=== PATIENT | female | born 1930 | race Caucasian/White ===

== ENCOUNTER 2017-01-19 13:41 | Inpatient (IN) ==
--- NOTE | 2017-01-19 14:19 | Internal Med History&Physical ---
Date of Encounter: 01/19/17 Time of Encounter: 14:17 Assessment and Plan (1) Pressure injury of skin, stage 2 Current visit: No Status: Acute Ration is cellulitis of the feet and anterior lower tibial area bilaterally Qualifiers: Pressure ulcer location: foot, unspecified location Laterality: unspecified laterality Qualified Code(s): L89.892 - Pressure ulcer of other site, stage 2 (2) Venous stasis dermatitis Current visit: No Status: Acute On exam his stasis in most this lymphedema Qualifiers: Laterality: bilateral Qualified Code(s): I87.2 - Venous insufficiency ( chronic) (peripheral) Internal Medicine - H&P: HPI Chief complaint: Dr. Jose came to me regarding this patient is treating wound care. She had Admitted From: Direct Admit Plans for Post Hospital Care: Home History of present illness: Ms. Trevino is a 86 year old female who agreed to come into the hospital for acute admission for IV antibiotics and just elevation treatment and wrapping of her lower extremity cellulitis Past Med Surg Social Fam HX - Past Medical History Medical history: arthritis, diabetes, GERD, hyperlipidemia, hypertension, venous stasis (Chronic lymphedema with cellulitis) Psychiatric history: no psych history - Past Surgical History Surgical History: cholecystectomy - Social History Smoking Status: Never smoker Smokeless Tobacco Status: No Alcohol use: none Drug use: none Internal Medicine - H&P: Meds Atorvastatin [Lipitor] 40 mg PO HS 01/07/15 [History] Diclofenac Sodium [Voltaren] 100 gm TP TID 01/07/15 [History] Furosemide [Lasix] 80 mg PO BID 01/07/15 [History] Glimepiride [Amaryl] 2 mg PO DAILY 01/07/15 [History] Mirabegron [Myrbetriq] 25 mg PO DAILY 01/07/15 [History] Omeprazole [Prilosec] 40 mg PO DAILY 01/07/15 [History] Valsartan [Diovan] 160 mg PO DAILY 01/07/15 [History] levoFLOXacin [Levaquin] 500 mg PO DAILY #14 tablet 02/04/16 [Rx] Clindamycin [Cleocin] 450 mg PO TID #63 capsule 01/05/17 [Rx] 3 Allergy/AdvReac Type Severity Reaction Status Date / Time cephalexin [From Keflex] Allergy Itching Verified 01/07/15 14:06 sulfamethoxazole Allergy Itching Verified 01/07/15 14:05 [From Bactrim] All Systems PM: A 10-system review of systems was performed and is negative for pertinent findings except as documented above in the HPI. - Head Head exam: Present: atraumatic, normocephalic - Neck Neck exam general surgery: Present: supple, trachea midline. Absent: lymphadenopathy - Respiratory Respiratory exam: Present: CTAB. Absent: accessory muscle use, rales, rhonchi, wheezes - Cardiovascular Cardiovascular exam: Present: RRR, +S1, +S2. Absent: diastolic murmur, gallop, rubs, systolic murmur - GI/Abdominal GI/Abdominal exam: Present: normal bowel sounds, soft, no peritoneal signs. Absent: distended, tenderness - Expanded Lower Extremities Exam Lower Leg exam: Present: erythema, swelling (Severe lymphedema cellulitis with generalized erythema) Internal Med - H&P Results - Labs Labs: Pending
[2017-01-19] MEDS: Clindamycin 600 MG/50 ML 600 MG/50 ML IV.SOLN IVPB SCH ×2 (16:34→23:25)
[2017-01-19] MEDS: *HR* Enoxaparin 100 MG/ML SYRINGE SQ SCH (16:34)
[2017-01-19] MEDS: traMADol 50 MG TABLET PO PRN ×2 (16:42→23:25)
[2017-01-19] MEDS: Furosemide 20 MG TABLET PO SCH (16:42)
[2017-01-19] MEDS ORDERED: Furosemide 40 MG TABLET PO SCH ×2 (17:00→21:00)
[2017-01-19] MEDS: Nystatin POWDER 30 GM BOTTLE TP SCH (23:25)
[2017-01-20] MEDS: *HR* Enoxaparin 100 MG/ML SYRINGE SQ SCH (05:36)
[2017-01-20 06:30] LABS: Basophils % 0.2 %; Eosinophils # 0.5 K/mcL (0.0-0.6); Eosinophils % 3.5 %; Hematocrit 36.9 % (35.3-44.9); Hemoglobin 12.3 g/dL (11.5-15.4); Immature Granulocytes % 0.4 % (0-4); Lymphocytes # 1.6 K/mcL (0.6-4.6); Lymphocytes % 11.4 %; Mean Corpuscular HGB Conc 33.3 g/dL (31.6-35.5); Mean Corpuscular Hemoglobin 29.3 pg (28.0-33.3); Mean Corpuscular Volume 87.9 fL (83.0-100.0); Mean Platelet Volume 11.2 fL (9.4-12.4); Monocytes # 1.5 K/mcL (0.0-1.3); Monocytes % 10.1 %; Neutrophils # 10.7 K/mcL (1.6-8.9); Platelet Count 328 K/mcL (140-400); Segmented Neutrophils % 74.4 %
[2017-01-20 06:33] LABS: INR 1.2; Prothrombin Time 12.6 Seconds (9.4-12.1)
[2017-01-20 06:42] LABS: Calcium 9.2 mg/dL (8.6-10.8); Potassium 4.4 mEq/L (3.5-4.5)
[2017-01-20] MEDS: Clindamycin 600 MG/50 ML 600 MG/50 ML IV.SOLN IVPB SCH ×2 (08:11→15:28)
[2017-01-20] MEDS: Nystatin POWDER 30 GM BOTTLE TP SCH ×2 (08:12→22:13)
[2017-01-20] MEDS: *HR* Glimepiride 2 MG TABLET PO SCH (08:12)
[2017-01-20] MEDS: Furosemide 20 MG TABLET PO SCH (08:12)
--- NOTE | 2017-01-20 16:40 | Internal Med Progress Note ---
Date of Encounter: 01/20/17 Time of Encounter: 16:20 - Assessment and plan (1) Cellulitis Current Visit: Yes Status: Acute Assessment and plan: - Continue clindamycin. - Wound care consult placed. Qualifiers: Site of cellulitis: extremity Site of cellulitis of extremity: lower extremity Laterality: unspecified laterality Qualified Code(s): L03.119 - Cellulitis of unspecified part of limb (2) Leukocytosis Current Visit: Yes Status: Acute Assessment and plan: - Likely 2/2 cellulitis; management per celullitis. - CBC/d tomorrow morning. Qualifiers: Qualified Code(s): D72.828 - Other elevated white blood cell count (3) Elevated serum creatinine Current Visit: Yes Status: Acute Assessment and plan: - Hold furosemide. - Initiate MIVF. - BMP tomorrow morning. - Time Spent With Patient 25 - 35 minutes - Subjective Interval history: Feels pain under legs where sheets are placed and would like to have something softer under the legs. Otherwise feels okay. - Constitutional Vitals: Temp Pulse Resp BP Pulse Ox 98.1 F 71 18 116/82 94 01/20/17 16:00 01/20/17 16:00 01/20/17 16:00 01/20/17 16:00 01/20/17 16:00 Exam: Gen: A&Ox3, NAD. HEENT: NCAT. Neck: No palpable lymphadenopathy or thyromegaly. CV: RRR, S1S2. No murmur. Capillary refill < 2 seconds. Pulm: CTAB. Abd: (+)BS. NDNT. Neuro: Non-focal. Skin: No rash observed. Ext: Bilateral LE wrapped with yasmani wraps. Internal Medicine: Result - Labs CBC & Chem 7: 01/20/17 06:23 01/20/17 06:23 Labs: Short CBC 01/20/17 Range/Units 06:23 WBC 14.4 H (4.3-11.1) K/mcL Hgb 12.3 (11.5-15.4) g/dL Hct 36.9 (35.3-44.9) % Plt Count 328 (140-400) K/mcL Neutrophils # 10.7 H (1.6-8.9) K/mcL BMP 01/20/17 06:23 Sodium 137 Potassium 4.4 Chloride 106 Carbon Dioxide 21 BUN 49 H Creatinine 1.55 H Glucose 114 H Calcium 9.2 - ABG Interpretation ABG results: PT/INR, D-dimer PT 12.6 Seconds (9.4-12.1) H 01/20/17 06:23 - VTE Reasons for not Prescribing Prophylaxis: Treatment not Indicated - Low risk for VTE Consult Discharge Plan - Plan Referrals: NONE,PCP [Primary Care Provider] -
[2017-01-20] MEDS: traMADol 50 MG TABLET PO PRN ×2 (16:58→22:38)
[2017-01-20] MEDS: 0.9 % Sodium Chloride 1,000 ML IVC SCH (17:19)
[2017-01-21] MEDS: Clindamycin 600 MG/50 ML 600 MG/50 ML IV.SOLN IVPB SCH ×3 (00:16→16:16)
[2017-01-21] MEDS: 0.9 % Sodium Chloride 1,000 ML IVC SCH ×2 (01:37→10:04)
[2017-01-21 05:22] LABS: Basophils % 0.2 %; Eosinophils # 0.5 K/mcL (0.0-0.6); Eosinophils % 4.7 %; Hematocrit 35.3 % (35.3-44.9); Hemoglobin 11.6 g/dL (11.5-15.4); Immature Granulocytes % 0.4 % (0-4); Lymphocytes # 1.6 K/mcL (0.6-4.6); Lymphocytes % 13.7 %; Mean Corpuscular HGB Conc 32.9 g/dL (31.6-35.5); Mean Corpuscular Volume 88.3 fL (83.0-100.0); Monocytes # 1.2 K/mcL (0.0-1.3); Monocytes % 10.4 %; Neutrophils # 8.1 K/mcL (1.6-8.9); Platelet Count 291 K/mcL (140-400); Segmented Neutrophils % 70.6 %
[2017-01-21 05:32] LABS: Calcium 8.2 mg/dL (8.6-10.8); Potassium 3.7 mEq/L (3.5-4.5)
[2017-01-21] MEDS: *HR* Enoxaparin 100 MG/ML SYRINGE SQ SCH (05:45)
[2017-01-21] MEDS: traMADol 50 MG TABLET PO PRN ×2 (06:59→20:26)
[2017-01-21] MEDS: *HR* Glimepiride 2 MG TABLET PO SCH (10:02)
[2017-01-21] MEDS: Nystatin POWDER 30 GM BOTTLE TP SCH ×2 (10:03→20:33)
--- NOTE | 2017-01-21 11:05 | Internal Med Progress Note ---
Date of Encounter: 01/21/17 Time of Encounter: 10:45 - Assessment and plan (1) Cellulitis Current Visit: Yes Status: Acute Assessment and plan: - Improving per the patient's report. - Continue clindamycin. - Wound care consult placed. Qualifiers: Site of cellulitis: extremity Site of cellulitis of extremity: lower extremity Laterality: unspecified laterality Qualified Code(s): L03.119 - Cellulitis of unspecified part of limb (2) Leukocytosis Current Visit: Yes Status: Acute Assessment and plan: - Improving, likely 2/2 cellulitis, which is responding to management. - Clinical monitoring and CBC/d as clinically indicated. Qualifiers: Qualified Code(s): D72.828 - Other elevated white blood cell count (3) Elevated serum creatinine Current Visit: Yes Status: Acute Assessment and plan: - Improving with hydration. - Will discontinue MIVF today. - Encourage PO intake. - Continue to hold furosemide for now; consider resuming when medically stable. - BMP tomorrow morning. - Time Spent With Patient 25 - 35 minutes - Subjective Interval history: - Pain under legs is better than yesterday, but still some soreness. - Feels UE is a bit more swollen at the IV sites. - With dressings over bilateral LE removed, patient believes her bilateral LE skin looks a whole lot better. - Constitutional Vitals: Temp Pulse Resp BP Pulse Ox 98.3 F 80 18 136/65 93 01/21/17 07:33 01/21/17 07:33 01/21/17 07:33 01/21/17 07:33 01/21/17 07:33 Exam: Gen: A&Ox3, NAD. HEENT: NCAT. Neck: No palpable lymphadenopathy or thyromegaly. CV: RRR, S1S2. No murmur. Capillary refill < 2 seconds. Pulm: CTAB. Abd: (+)BS. NDNT. Neuro: Non-focal. Skin: No rash observed. Ext: Erythema and pressure ulcers in bilateral LE observed upon dressing removal. Trace pitting edema in bilateral LE. Internal Medicine: Result - Labs CBC & Chem 7: 01/21/17 05:00 01/21/17 05:00 Labs: Short CBC 01/21/17 Range/Units 05:00 WBC 11.5 H (4.3-11.1) K/mcL Hgb 11.6 (11.5-15.4) g/dL Hct 35.3 (35.3-44.9) % Plt Count 291 (140-400) K/mcL Neutrophils # 8.1 (1.6-8.9) K/mcL BMP 01/21/17 05:00 Sodium 141 Potassium 3.7 Chloride 109 Carbon Dioxide 20 BUN 41 H Creatinine 1.21 H Glucose 87 Calcium 8.2 L - ABG Interpretation ABG results: PT/INR, D-dimer PT 12.6 Seconds (9.4-12.1) H 01/20/17 06:23 - VTE Reasons for not Prescribing Prophylaxis: Treatment not Indicated - Low risk for VTE Consult Discharge Plan - Plan Referrals: NONE,PCP [Primary Care Provider] -
[2017-01-22] MEDS: Clindamycin 600 MG/50 ML 600 MG/50 ML IV.SOLN IVPB SCH ×4 (00:57→16:48)
[2017-01-22] MEDS: *HR* Enoxaparin 100 MG/ML SYRINGE SQ SCH (05:06)
[2017-01-22 06:16] LABS: BUN/Creatinine Ratio 26 (6-26); Blood Urea Nitrogen 23 mg/dL (7-20); Calcium 8.4 mg/dL (8.6-10.8); Carbon Dioxide 21 mEq/L (19-29); Chloride 108 mEq/L (98-109); Glucose 136 mg/dL (70-99); Osmolality,Calculated 292 (280-300); Potassium 3.7 mEq/L (3.5-4.5); Sodium 138 mEq/L (136-145); eGFR For African Americans > 60 (> 60); eGFR For Non-African Americans > 60 (> 60)
[2017-01-22] MEDS: traMADol 50 MG TABLET PO PRN (08:48)
[2017-01-22] MEDS: *HR* Glimepiride 2 MG TABLET PO SCH (08:48)
[2017-01-22] MEDS: Nystatin POWDER 30 GM BOTTLE TP SCH ×2 (08:49→18:29)
--- NOTE | 2017-01-22 15:03 | Internal Med Progress Note ---
Date of Encounter: 01/22/17 Time of Encounter: 15:01 - Assessment and plan (1) Pressure injury of skin, stage 2 Current Visit: No Status: Acute Assessment and plan: Patient is still wearing her Unna boots and will definitely see the legs were we changed him tomorrow wound care will see her then Qualifiers: Pressure ulcer location: foot, unspecified location Laterality: unspecified laterality Qualified Code(s): L89.892 - Pressure ulcer of other site, stage 2 (2) Venous stasis dermatitis Current Visit: No Status: Acute Assessment and plan: Chronic in nature Qualifiers: Laterality: bilateral Qualified Code(s): I87.2 - Venous insufficiency ( chronic) (peripheral) - Time Spent With Patient less than 15 minutes - Subjective Interval history: Shabnam has no complaints and states then want to go home she doing okay she states she does not have much appetite. - Constitutional Vitals: Temp Pulse Resp BP Pulse Ox 98.7 F 78 18 111/52 91 01/22/17 11:21 01/22/17 11:21 01/22/17 11:21 01/22/17 11:21 01/22/17 11:21 - Head Head exam: Present: atraumatic, normal inspection, normocephalic - Neck Neck exam general surgery: Present: supple, trachea midline. Absent: lymphadenopathy - Respiratory Respiratory exam: Present: CTAB. Absent: accessory muscle use, rales, rhonchi, wheezes - Cardiovascular Cardiovascular exam: Present: RRR, +S1, +S2. Absent: diastolic murmur, gallop, rubs, systolic murmur - GI/Abdominal GI/Abdominal exam: Present: normal bowel sounds, soft, no peritoneal signs. Absent: distended, tenderness Internal Medicine: Result - Labs CBC & Chem 7: 01/21/17 05:00 01/22/17 04:50 Labs: BMP 01/22/17 04:50 Sodium 138 Potassium 3.7 Chloride 108 Carbon Dioxide 21 BUN 23 H D Creatinine 0.89 Glucose 136 H Calcium 8.4 L Patient's renal function improved. In addition her output exceeded her intake. - ABG Interpretation ABG results: PT/INR, D-dimer PT 12.6 Seconds (9.4-12.1) H 01/20/17 06:23 - VTE Reasons for not Prescribing Prophylaxis: Treatment not Indicated - Low risk for VTE Consult Discharge Plan - Plan Referrals: NONE,PCP [Primary Care Provider] -
[2017-01-23] MEDS: Clindamycin 600 MG/50 ML 600 MG/50 ML IV.SOLN IVPB SCH ×4 (00:37→23:50)
[2017-01-23] MEDS: *HR* Enoxaparin 100 MG/ML SYRINGE SQ SCH (05:09)
[2017-01-23] MEDS: traMADol 50 MG TABLET PO PRN ×2 (05:21→16:21)
[2017-01-23] MEDS: Furosemide 20 MG TABLET PO SCH ×2 (09:53→16:21)
[2017-01-23] MEDS: *HR* Glimepiride 2 MG TABLET PO SCH (09:53)
[2017-01-23] MEDS: Nystatin POWDER 30 GM BOTTLE TP SCH ×2 (09:54→20:55)
--- NOTE | 2017-01-23 13:08 | Internal Med Progress Note ---
Date of Encounter: 01/23/17 Time of Encounter: 13:06 - Assessment and plan (1) Pressure injury of skin, stage 2 Current Visit: No Status: Acute Assessment and plan: Much improved Qualifiers: Pressure ulcer location: foot, unspecified location Laterality: unspecified laterality Qualified Code(s): L89.892 - Pressure ulcer of other site, stage 2 (2) Venous stasis dermatitis Current Visit: No Status: Acute Assessment and plan: Swelling is down wrinkles are present anterior tibial area feeder much less puffy Qualifiers: Laterality: bilateral Qualified Code(s): I87.2 - Venous insufficiency ( chronic) (peripheral) - Time Spent With Patient less than 15 minutes - Subjective Interval history: Shabnam has no complaints and states then want to go home she doing okay she states she does not have much appetite. Wound care changes dressings I was in there. She has much less erythema and now individual toes could be seen and will be wrapped individually. There reapplying the dressing now. She does have some open areas between the toes and there so disfigured it is difficult to tell what snail - Constitutional Vitals: Temp Pulse Resp BP Pulse Ox 97 F L 77 20 94/52 91 01/23/17 11:02 01/23/17 11:02 01/23/17 11:02 01/23/17 11:02 01/23/17 11:02 - Head Head exam: Present: atraumatic, normal inspection, normocephalic - Neck Neck exam general surgery: Present: supple, trachea midline. Absent: lymphadenopathy - Respiratory Respiratory exam: Present: CTAB. Absent: accessory muscle use, rales, rhonchi, wheezes - Cardiovascular Cardiovascular exam: Present: RRR, +S1, +S2. Absent: diastolic murmur, gallop, rubs, systolic murmur Internal Medicine: Result - Labs CBC & Chem 7: 01/21/17 05:00 01/22/17 04:50 Labs: Lab looks good - ABG Interpretation ABG results: PT/INR, D-dimer PT 12.6 Seconds (9.4-12.1) H 01/20/17 06:23 - VTE Reasons for not Prescribing Prophylaxis: Treatment not Indicated - Low risk for VTE Consult Discharge Plan - Plan Referrals: NONE,PCP [Primary Care Provider] -
[2017-01-23] MEDS: Ondansetron ODT 4 MG TAB.RAPDIS SL PRN (20:43)
[2017-01-24] MEDS: *HR* Enoxaparin 40 MG/0.4 ML SYRINGE SQ SCH (05:12)
[2017-01-24] MEDS: Furosemide 20 MG TABLET PO SCH ×2 (08:18→17:05)
[2017-01-24] MEDS: Clindamycin 600 MG/50 ML 600 MG/50 ML IV.SOLN IVPB SCH ×2 (08:18→11:32)
[2017-01-24] MEDS: *HR* Glimepiride 2 MG TABLET PO SCH (08:18)
[2017-01-24] MEDS: Nystatin POWDER 30 GM BOTTLE TP SCH ×2 (10:14→20:21)
--- NOTE | 2017-01-24 14:24 | Internal Med Progress Note ---
Date of Encounter: 01/24/17 Time of Encounter: 14:22 - Assessment and plan (1) Pressure injury of skin, stage 2 Current Visit: Yes Status: Acute Assessment and plan: We had cellulitis she has chronic lymphedema and significant lower extremity edema. Qualifiers: Pressure ulcer location: foot, unspecified location Laterality: unspecified laterality Qualified Code(s): L89.892 - Pressure ulcer of other site, stage 2 (2) Venous stasis dermatitis Current Visit: No Status: Acute Assessment and plan: Chronic severe edema related probably to lymphedema Qualifiers: Laterality: bilateral Qualified Code(s): I87.2 - Venous insufficiency ( chronic) (peripheral) - Time Spent With Patient less than 15 minutes - Subjective Interval history: Garriosn probably be discharged or Sunday. There is a significant improvement in her cellulitis. I stop the IV today and would ahead to oral medication. - Constitutional Vitals: Temp Pulse Resp BP Pulse Ox 98.5 F 86 16 118/62 91 01/24/17 11:52 01/24/17 11:52 01/24/17 11:52 01/24/17 11:52 01/24/17 11:52 - Head Head exam: Present: atraumatic, normal inspection, normocephalic - Neck Neck exam general surgery: Present: supple, trachea midline. Absent: lymphadenopathy - Respiratory Respiratory exam: Present: CTAB. Absent: accessory muscle use, rales, rhonchi, wheezes - Cardiovascular Cardiovascular exam: Present: RRR, +S1, +S2. Absent: diastolic murmur, gallop, rubs, systolic murmur Internal Medicine: Result - Labs CBC & Chem 7: 01/21/17 05:00 01/22/17 04:50 Labs: Shabnam is now you can tell getting tired of being in the hospital but were getting close to discharge. - ABG Interpretation ABG results: PT/INR, D-dimer PT 12.6 Seconds (9.4-12.1) H 01/20/17 06:23 - VTE Reasons for not Prescribing Prophylaxis: Treatment not Indicated - Low risk for VTE Consult Discharge Plan - Plan Referrals: NONE,PCP [Primary Care Provider] -
[2017-01-24] MEDS: Ondansetron ODT 4 MG TAB.RAPDIS SL PRN (20:21)
[2017-01-25] MEDS: *HR* Enoxaparin 40 MG/0.4 ML SYRINGE SQ SCH (06:06)
[2017-01-25 07:12] VITALS: BP 109/59
[2017-01-25] MEDS ORDERED: Ketoconazole 2% CRM 15 GM TUBE TP SCH (09:00)
[2017-01-25] MEDS: *HR* Glimepiride 2 MG TABLET PO SCH (09:26)
[2017-01-25] MEDS: Furosemide 20 MG TABLET PO SCH ×2 (09:26→09:43)
[2017-01-25] MEDS: Nystatin POWDER 30 GM BOTTLE TP SCH (09:28)
[2017-01-25] MEDS ORDERED: FLUARIX QUAD 2017-18 36MOS UP/PF 0.5 ML SYRINGE IM ONE (16:16)
--- NOTE | 2017-01-25 17:32 | Physician Discharge Referral ---
- Diagnosis (1) Cellulitis Priority: Primary Status: Acute (2) Venous stasis dermatitis Priority: Secondary Status: Acute - Respiratory Orders None Smoking Cessation: Smoking cessation has been advised. For more information, call the [place] Tobacco Quit Line at 8-851-SULB-NOW. - Diet/Nutrition Diet/Nutrition Orders: Regular - Activity Activity: List: As tolerated - Services Needed Following services are medically necessary services: Nursing, Home Health Aide - Transfer Medications Prescriptions: Clindamycin HCl [Cleocin HCl] 300 mg PO TID 7 Days #21 cap Tramadol HCl [Ultram] 50 mg PO BID PRN 10 Days #20 tablet PRN Reason: pain Home Medications: Atorvastatin [Lipitor] 40 mg PO HS 01/07/15 [History] Diclofenac Sodium [Voltaren] 100 gm TP TID 01/07/15 [History] Furosemide [Lasix] 80 mg PO BID 01/07/15 [History] Glimepiride [Amaryl] 2 mg PO DAILY 01/07/15 [History] Omeprazole [Prilosec] 40 mg PO DAILY 01/07/15 [History] Valsartan [Diovan] 160 mg PO DAILY 01/07/15 [History] Clindamycin HCl [Cleocin HCl] 300 mg PO TID 7 Days #21 cap 01/25/17 [Rx] Tramadol HCl [Ultram] 50 mg PO BID PRN 10 Days #20 tablet 01/25/17 [Rx] Allergies/Adverse Reactions: 3 Allergy/AdvReac Type Severity Reaction Status Date / Time cephalexin [From Keflex] Allergy Itching Verified 01/07/15 14:06 sulfamethoxazole Allergy Itching Verified 01/07/15 14:05 [From Bactrim] Certification: Further, I certify that my clinical findings support that this patient is homebound (i.e. absences from home require considerable and taxing effort and are for medical reasons or anabaptist services or infrequently or short duration when for other reasons) because: Homebound Reason: Patient requires assistance of a person or device to safely leave home, Leaving home requires considerable and taxing effort due to condition Attestation: My signature below is to certify that this patient is under my care and that I, or nurse practitioner, or a physician's advertising assistant working with me, has a face-to -face encounter with this patient.
--- NOTE | 2017-03-16 15:44 | Discharge Summary ---
Date of Encounter: 03/16/17 Time of Encounter: 15:42 - Discharge Diagnosis (1) Pressure injury of skin, stage 2 Priority: Primary Status: Acute Comments: Stage II decubiti on the buttocks cellulitis and extreme venous stasis of the bilateral lower extremity Qualifiers: Pressure ulcer location: foot, unspecified location Laterality: left Qualified Code(s): L89.892 - Pressure ulcer of other site, stage 2 (2) Venous stasis dermatitis Priority: Primary Status: Chronic Qualifiers: Laterality: bilateral Qualified Code(s): I87.2 - Venous insufficiency ( chronic) (peripheral) - Discharge Medications Prescriptions: Clindamycin HCl [Cleocin HCl] 300 mg PO TID 7 Days #21 cap Tramadol HCl [Ultram] 50 mg PO BID PRN 10 Days #20 tablet PRN Reason: pain Home Medications: Atorvastatin [Lipitor] 40 mg PO HS 01/07/15 [History] Diclofenac Sodium [Voltaren] 100 gm TP TID 01/07/15 [History] Furosemide [Lasix] 80 mg PO BID 01/07/15 [History] Glimepiride [Amaryl] 2 mg PO DAILY 01/07/15 [History] Omeprazole [Prilosec] 40 mg PO DAILY 01/07/15 [History] Valsartan [Diovan] 160 mg PO DAILY 01/07/15 [History] Clindamycin HCl [Cleocin HCl] 300 mg PO TID 7 Days #21 cap 01/25/17 [Rx] Tramadol HCl [Ultram] 50 mg PO BID PRN 10 Days #20 tablet 01/25/17 [Rx] Allergies/Adverse Reactions: 3 Allergy/AdvReac Type Severity Reaction Status Date / Time cephalexin [From Keflex] Allergy Itching Verified 02/20/17 21:58 sulfamethoxazole Allergy Itching Verified 02/20/17 21:58 [From Bactrim] Date of admission: 01/19/17 14:48 Primary care physician: PCP NONE Consults: 01/19/17 14:30 Consult to Manager Video [CONS] Routine Reason for SW Consult: evall and discharge Discharging clinician: Vladislav Arreaga Anticipated date of discharge: 01/19/17 - Patient Status Disposition: Home Health Service Condition: Good Overall status at discharge: patient is progressing back to baseline - Discharge Instructions Follow Up With: NONE,PCP [Primary Care Provider] - - Diet and Activity Activity: as per physical therapy Diet: advance to your usual diet, diabetic diet Interval History: Mrs. Trevino's done very well. When she showed up in the emergency room she had grade 2 decubiti of both buttocks she also had some of the worst venous stasis swelling in also erythema and cellulitis that we have seeing. You could not distinguish her toes she was so swollen. She had her feet elevated she was diuresed she was seen by wound care she was Off her buttocks and Dry as much as possible and all of the above and improved. Hospital course: Ms. Trevino is a 86 year old female - Time Spent with Patient Total time spent providing and/or coordinating discharge services: Less than 30 minutes - Constitutional Vitals: Temp Pulse Resp BP Pulse Ox 98.1 F 95 16 109/59 95 01/25/17 07:10 01/25/17 07:10 01/25/17 07:10 01/25/17 07:10 01/25/17 07:10 - Head Head exam: Present: atraumatic, normal inspection, normocephalic - Neck Neck exam general surgery: Present: supple, trachea midline. Absent: lymphadenopathy - Respiratory Respiratory exam: Present: CTAB. Absent: accessory muscle use, rales, rhonchi, wheezes - Cardiovascular Cardiovascular exam: Present: RRR, +S1, +S2. Absent: diastolic murmur, gallop, rubs, systolic murmur - GI/Abdominal GI/Abdominal exam: Present: normal bowel sounds, soft, no peritoneal signs. Absent: distended, tenderness - VTE Reasons for not Prescribing Prophylaxis: Treatment not Indicated - Low risk for VTE
== END 2017-01-25 16:45 | disposition home health service (06) | DRG 603 ==
LOC: INPGRE
PROVIDERS: ADMIT Internal Medicine; ATTEND Internal Medicine

== ENCOUNTER 2017-02-20 18:37 | Inpatient (IN) ==
--- NOTE | 2017-02-20 18:41 | Emergency Department Note ---
Disposition Clinical Impression: Sacral decubitus ulcer, stage III, Urinary tract infection Disposition: Admitted As Inpatient Condition: Good Reasons to Return/Additional Instructions: your blood pressure was normal today. Follow up with your doctor for a recheck. Referrals: NONE,PCP [Non-Partnered Physician] - Time of Disposition: 20:00 General Adult HPI - General Stated complaint: wound Time Seen by Provider: 02/20/17 18:37 Source: patient, family Mode of arrival: EMS Limitations: no limitations Nursing Notes Reviewed: Yes Vital Signs Reviewed: Yes - History of Present Illness HPI Narrative: Patient has large sores on her buttox and left thigh. He has been gradually getting worse according to her caregiver daughter. She admits that she just cannot properly take care of her at this point. Patient denies any pain she says she feels tired. Her daughter says she really cannot stand much. They do have home health coming 3 times a week to help take care of her legs. She denies any fevers chills nausea vomiting night sweats shortness of breath or other complaints other than not sleeping and having the source. Onset (ago): week(s) Location: buttocks, left, lower extremity Radiation: non-radiation Pain Severity: moderate Improves with: nothing Worsens with: nothing Associated symptoms: Reports: denies other symptoms Treatments Prior to Arrival: none - Related Data Home Medications Medication Instructions Recorded Confirmed Atorvastatin [Lipitor] 40 mg PO HS 01/07/15 03/30/15 Diclofenac Sodium [Voltaren] 100 gm TP TID 01/07/15 03/30/15 Furosemide [Lasix] 80 mg PO BID 01/07/15 03/30/15 Glimepiride [Amaryl] 2 mg PO DAILY 01/07/15 03/30/15 Omeprazole [Prilosec] 40 mg PO DAILY 01/07/15 03/30/15 Valsartan [Diovan] 160 mg PO DAILY 01/07/15 03/30/15 Previous Rx's Medication Instructions Recorded Clindamycin HCl [Cleocin HCl] 300 mg PO TID 7 Days #21 cap 01/25/17 Tramadol HCl [Ultram] 50 mg PO BID PRN 10 Days #20 tablet 01/25/17 Allergies Allergy/AdvReac Type Severity Reaction Status Date / Time cephalexin [From Keflex] Allergy Itching Verified 01/07/15 14:06 sulfamethoxazole Allergy Itching Verified 01/07/15 14:05 [From Bactrim] All systems ED: reviewed and negative except as stated. Review of Systems: As Per HPI Constitutional: Denies: fever, chills, weakness, weight change Eyes: Denies: eye pain, eye discharge, vision change ENT ED: Denies: ear pain, throat pain, dental pain, hearing loss, epistaxis, congestion, dysphagia Cardiovascular: Denies: chest pain, palpitations, dyspnea on exertion, edema, syncope Respiratory: Denies: cough, dyspnea, wheezes, hemoptysis, stridor Gastrointestinal: Denies: abdominal pain, nausea, vomiting, diarrhea, constipation, hematemesis, melena, hematochezia Genitourinary: Denies: dysuria, frequency, hematuria, discharge Musculoskeletal: Denies: back pain, neck pain, arthralgia, myalgia Integumentary: Reports: lesions, other (stage 3 sacral / left thigh decubitus ulcers). Denies: rash, abrasion Neurological: Denies: headache, weakness, numbness, paresthesias, confusion, abnormal gait, vertigo Psychiatric: Denies: anxiety, depression, suicidal thoughts, homicidal thoughts , auditory hallucinations, visual hallucinations Endocrine: Denies: fatigue Hematological/Lymphatic: Denies: easy bleeding, easy bruising Allergic/Immunologic: Denies: facial swelling, urticaria Past Medical History - Past Medical History Attestation: Yes The following information was validated with the patient. 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 - Social History Smoking Status: Never smoker Smokeless Tobacco Status: No Alcohol use: Reports: none Drug use: Reports: none Physical Exam - General Limitations: no limitations General appearance: alert, in no apparent distress - Head Head exam: atraumatic, normocephalic, normal inspection - Eye Eye exam: Present: normal appearance, PERRL, EOMI - ENT ENT exam: normal exam, normal oropharynx, mucous membranes moist - Neck Neck exam: Present: normal inspection, full ROM, trachea midline - Chest Chest inspection: Present: normal inspection, symmetric chest wall rise - Respiratory Respiratory exam: Present: normal lung sounds bilaterally - Cardiovascular Cardiovascular exam: Present: regular rate, normal rhythm, normal heart sounds - Abdominal Exam Abdominal exam: Present: soft, Non-Tender - Extremities Exam Extremities exam: Present: other (unaboots to bilateral lower extremities.) - Back Exam Back exam: Absent: tenderness - Neurological Exam Neurological exam: Present: alert, oriented X3 - Skin Skin exam: Present: warm, dry, rash, erythema, other (stage 3 sacral / left thigh decubius uclerations) Medical Decision Making - [facility] Narrative Medical decision making narrative: The case was discussed with Dr. Arreaga who knows the patient well. He agrees with admission hospital and will start working on [place] [facility] placement tomorrow. - Lab Data Lab results reviewed: Yes I reviewed the patient's lab results.
[2017-02-20 19:10] LABS: Basophils # 0.1 K/mcL (0.0-0.2); Basophils % 0.5 %; Eosinophils # 0.7 K/mcL (0.0-0.6); Eosinophils % 4.8 %; Hematocrit 37.9 % (35.3-44.9); Hemoglobin 12.3 g/dL (11.5-15.4); Immature Granulocytes % 0.5 % (0-4); Lymphocytes # 1.7 K/mcL (0.6-4.6); Lymphocytes % 11.6 %; Mean Corpuscular HGB Conc 32.5 g/dL (31.6-35.5); Mean Corpuscular Hemoglobin 28.4 pg (28.0-33.3); Mean Corpuscular Volume 87.5 fL (83.0-100.0); Mean Platelet Volume 10.6 fL (9.4-12.4); Monocytes # 1.2 K/mcL (0.0-1.3); Monocytes % 8.2 %; Neutrophils # 11.1 K/mcL (1.6-8.9); Platelet Count 376 K/mcL (140-400); Red Blood Count 4.33 M/mcL (3.82-4.97); Red Cell Distribution Width 14.8 % (11.5-14.5); Segmented Neutrophils % 74.4 %
[2017-02-20 19:24] LABS: Albumin 2.5 g/dL (3.5-5.0); Albumin/Globulin Ratio 0.5 (1.1-2.2); Bilirubin,Total 0.4 mg/dL (0.2-1.2); Calcium 9.3 mg/dL (8.6-10.8); Globulin 4.9 g/dL (2.4-3.5); Potassium 4.7 mEq/L (3.5-4.5); Total Protein 7.4 g/dL (6.0-8.3)
[2017-02-20 19:53] LABS: Bilirubin,Urine Negative (Negative); Blood,Urine Large (Negative); Clarity,Urine Cloudy (Clear); Color,Urine Yellow (Yellow); Glucose,Urine (UA) Normal (Normal); Ketones,Urine Negative (Negative); Leukocyte Esterase,Urine Small (Negative); Nitrite,Urine Positive (Negative); PH,Urine 6.5 pH Units (5.0-8.0); Protein,Urine 100 mg/dL (Neg-Trace); Specific Gravity,Urine 1.025 (1.010-1.025); Urobilinogen,Urine Normal (Normal)
[2017-02-20 19:55] LABS: Bacteria,Urine Moderate per hpf (None-Few); Hyaline Casts,Urine Few per lpf (None-Few)
[2017-02-20] MEDS ORDERED: Levofloxacin 500 MG/100 ML 500 MG/100 ML BAG IVPB ONE (20:01)
[2017-02-20] MEDS ORDERED: Naloxone 0.4 MG/ML INJ IVP PRN (21:28)
[2017-02-20] MEDS ORDERED: Acetaminophen 325 MG TABLET PO PRN (21:28)
[2017-02-20] MEDS: traMADol 50 MG TABLET PO PRN (22:28)
[2017-02-20] MEDS: 0.9 % Sodium Chloride 1,000 ML IVC SCH (22:30)
[2017-02-21 05:35] LABS: Basophils # 0.1 K/mcL (0.0-0.2); Basophils % 0.4 %; Eosinophils # 0.7 K/mcL (0.0-0.6); Eosinophils % 5.5 %; Hematocrit 35.7 % (35.3-44.9); Hemoglobin 11.6 g/dL (11.5-15.4); Immature Granulocytes % 0.6 % (0-4); Lymphocytes # 1.7 K/mcL (0.6-4.6); Lymphocytes % 13.3 %; Mean Corpuscular HGB Conc 32.5 g/dL (31.6-35.5); Mean Corpuscular Hemoglobin 28.4 pg (28.0-33.3); Mean Corpuscular Volume 87.5 fL (83.0-100.0); Mean Platelet Volume 10.8 fL (9.4-12.4); Monocytes # 1.2 K/mcL (0.0-1.3); Monocytes % 9.1 %; Platelet Count 340 K/mcL (140-400); Red Blood Count 4.08 M/mcL (3.82-4.97); Red Cell Distribution Width 14.9 % (11.5-14.5); Segmented Neutrophils % 71.1 %
[2017-02-21 05:47] LABS: Calcium 8.7 mg/dL (8.6-10.8); Potassium 4.9 mEq/L (3.5-4.5)
[2017-02-21] MEDS: Furosemide 40 MG TABLET PO SCH ×2 (07:52→18:12)
[2017-02-21] MEDS: *HR* Glimepiride 2 MG TABLET PO SCH (07:52)
[2017-02-21] MEDS: Valsartan 160 MG TABLET PO SCH (07:52)
[2017-02-21] MEDS ORDERED: *HR* Enoxaparin 40 MG/0.4 ML SYRINGE SQ SCH (09:00)
--- NOTE | 2017-02-21 11:33 | Internal Med History&Physical ---
Date of Encounter: 02/21/17 Time of Encounter: 11:31 Assessment and Plan (1) Pressure injury of skin, stage 2 Current visit: Yes Status: Acute Patient has 2 decubiti bilateral buttocks left hip lower extremity chronically edematous with stasis ulcers and weeping Qualifiers: Pressure ulcer location: foot, unspecified location Laterality: unspecified laterality Qualified Code(s): L89.892 - Pressure ulcer of other site, stage 2 (2) Venous stasis dermatitis Current visit: Yes Status: Acute Qualifiers: Laterality: bilateral Qualified Code(s): I87.2 - Venous insufficiency ( chronic) (peripheral) (3) Venous stasis of lower extremity Current visit: No Status: Acute Bilateral lower extremity edema and she had Unna boots on which were saturated with urine (4) Cellulitis Current visit: No Status: Acute She has some bilateral lower extremity cellulitis Qualifiers: Site of cellulitis: extremity Site of cellulitis of extremity: lower extremity Laterality: unspecified laterality Qualified Code(s): L03.119 - Cellulitis of unspecified part of limb (5) SARINA (acute kidney injury) Current visit: No Status: Acute Slight mild chronic renal failure (6) Elevated serum creatinine Current visit: No Status: Acute Noted mild chronic renal (7) Sacral decubitus ulcer, stage III Current visit: Yes Status: Acute Wound care will be seeing patient for the above (8) Urinary tract infection Current visit: Yes Status: Acute Currently a UTI which is being addressed Qualifiers: Urinary tract infection type: acute cystitis Hematuria presence: without hematuria Qualified Code(s): N30.00 - Acute cystitis without hematuria Internal Medicine - H&P: HPI Chief complaint: Patient was brought in because her family cannot take care of her and she h Admitted From: Emergency Dept Plans for Post Hospital Care: Transfer Division Head Care History of present illness: Ms. Trevino is a 86 year old female Patient has had very bad chronic lower extremity bilateral venous stasis ulcers along with severe edema. Past Med Surg Social Fam HX - Past Medical History Medical history: arthritis, diabetes, GERD, hyperlipidemia, hypertension, venous stasis Psychiatric history: no psych history - Past Surgical History Surgical History: cholecystectomy - Social History Smoking Status: Never smoker Smokeless Tobacco Status: No Alcohol use: none Drug use: none - Family History Mother Adopted: No Living Status: Hx Family Cancer: Yes (cancer all over) Internal Medicine - H&P: Meds Atorvastatin [Lipitor] 40 mg PO HS 01/07/15 [History] Diclofenac Sodium [Voltaren] 100 gm TP TID 01/07/15 [History] Furosemide [Lasix] 80 mg PO BID 01/07/15 [History] Glimepiride [Amaryl] 2 mg PO DAILY 01/07/15 [History] Omeprazole [Prilosec] 40 mg PO DAILY 01/07/15 [History] Valsartan [Diovan] 160 mg PO DAILY 01/07/15 [History] Clindamycin HCl [Cleocin HCl] 300 mg PO TID 7 Days #21 cap 01/25/17 [Rx] Tramadol HCl [Ultram] 50 mg PO BID PRN 10 Days #20 tablet 01/25/17 [Rx] 3 Allergy/AdvReac Type Severity Reaction Status Date / Time cephalexin [From Keflex] Allergy Itching Verified 02/20/17 21:58 sulfamethoxazole Allergy Itching Verified 02/20/17 21:58 [From Bactrim] All Systems PM: A 10-system review of systems was performed and is negative for pertinent findings except as documented above in the HPI. - Constitutional Constitutional: fatigue, weakness - EENT Eyes: no other visual disturbances Ears: no as per HPI Nose, mouth and throat: no as per HPI - Breasts Breasts: no as per HPI - Cardiovascular Cardiovascular ROS IM: dyspnea on exertion - Respiratory Respiratory: dyspnea on exertion - Gastrointestinal Gastrointestinal: no abdominal pain, no belching, no change in bowel habits, no change in stool character, no coffee ground emesis, no hematemesis, no hematochezia, no melena - Genitourinary Genitourinary: dysuria, hematuria, vaginal odor, no abnormal menses, no abnormal vaginal bleeding, no amenorrhea, no breast change in shape, no breast mass, no breast skin changes, no dysmenorrhea, no dyspareunia Menstruation: amenorrhea - Musculoskeletal Musculoskeletal ROS IM: limited range of motion, muscle weakness - Integumentary Integumentary IM: erythema, non-healing lesions, skin ulcer, sores - Neurological Neurological ROS: no abnormal hearing, no abnormal movements, no abnormal speech , no behavioral changes, no loss of vision - Psychiatric Psychiatric: no anhedonia, no anxiety, no change in appetite, no change in libido, no confusion, no depression, no difficulty concentrating, no hallucinations, no homicidal ideation, no suicidal ideation - Endocrine Endocrine IM: fatigue, no polydipsia, no polyphagia, no polyuria - Hematologic/Lymphatic Hematologic/Lymphatic: easy bruising, no easy bleeding - Constitutional Vitals: Temp Pulse Resp BP Pulse Ox 98.0 F 92 16 103/52 93 02/21/17 07:16 02/21/17 07:16 02/21/17 07:16 02/21/17 07:16 02/21/17 07:16 - Head Head exam: Present: atraumatic, normal inspection, normocephalic - Neck Neck exam general surgery: Present: supple, trachea midline. Absent: lymphadenopathy - Respiratory Respiratory exam: Present: CTAB. Absent: accessory muscle use, rales, rhonchi, wheezes - Cardiovascular Cardiovascular exam: Present: RRR, +S1, +S2. Absent: diastolic murmur, gallop, rubs, systolic murmur - GI/Abdominal GI/Abdominal exam: Present: normal bowel sounds, soft, no peritoneal signs. Absent: distended, tenderness Internal Med - H&P Results - Labs CBC & Chem 7: 02/21/17 05:15 02/21/17 05:15 Labs: Short CBC 02/21/17 Range/Units 05:15 WBC 12.6 H (4.3-11.1) K/mcL Hgb 11.6 (11.5-15.4) g/dL Hct 35.7 (35.3-44.9) % Plt Count 340 (140-400) K/mcL Neutrophils # 9.0 H (1.6-8.9) K/mcL BMP 02/21/17 05:15 Sodium 140 Potassium 4.9 H Chloride 112 H Carbon Dioxide 18 L BUN 32 H Creatinine 1.29 H Glucose 57 L Calcium 8.7 Total renal failure noted
--- NOTE | 2017-02-21 12:13 | Internal Med Progress Note ---
Date of Encounter: 02/21/17 Time of Encounter: 11:42 - Assessment and plan (1) Pressure injury of skin, stage 2 Current Visit: Yes Status: Acute Qualifiers: Pressure ulcer location: foot, unspecified location Laterality: unspecified laterality Qualified Code(s): L89.892 - Pressure ulcer of other site, stage 2 (2) Venous stasis dermatitis Current Visit: Yes Status: Acute Qualifiers: Laterality: bilateral Qualified Code(s): I87.2 - Venous insufficiency ( chronic) (peripheral) (3) Venous stasis of lower extremity Current Visit: No Status: Acute (4) Cellulitis Current Visit: No Status: Acute Qualifiers: Site of cellulitis: extremity Site of cellulitis of extremity: lower extremity Laterality: unspecified laterality Qualified Code(s): L03.119 - Cellulitis of unspecified part of limb (5) SARINA (acute kidney injury) Current Visit: No Status: Acute (6) Elevated serum creatinine Current Visit: No Status: Acute (7) Sacral decubitus ulcer, stage III Current Visit: Yes Status: Acute (8) Urinary tract infection Current Visit: Yes Status: Acute Qualifiers: Urinary tract infection type: acute cystitis Hematuria presence: without hematuria Qualified Code(s): N30.00 - Acute cystitis without hematuria - Subjective Interval history: has decubiti on the buttocks bilaterally lower extremity edema with cellulitis and chronic venous stasis. Heavy weeping. Family states unable to care for her she should go to ECF. Social workers involved in his talk to Adult Protective Services - Constitutional Vitals: Temp Pulse Resp BP Pulse Ox 98.0 F 92 16 103/52 93 02/21/17 07:16 02/21/17 07:16 02/21/17 07:16 02/21/17 07:16 02/21/17 07:16 Internal Medicine: Result - Labs CBC & Chem 7: 02/21/17 05:15 02/21/17 05:15 Labs: Short CBC 02/21/17 Range/Units 05:15 WBC 12.6 H (4.3-11.1) K/mcL Hgb 11.6 (11.5-15.4) g/dL Hct 35.7 (35.3-44.9) % Plt Count 340 (140-400) K/mcL Neutrophils # 9.0 H (1.6-8.9) K/mcL [facility] 02/21/17 05:15 Sodium 140 Potassium 4.9 H Chloride 112 H Carbon Dioxide 18 L BUN 32 H Creatinine 1.29 H Glucose 57 L Calcium 8.7 Consult Discharge Plan - Plan Additional Instructions: your blood pressure was normal today. Follow up with your doctor for a recheck.
--- NOTE | 2017-02-21 13:24 | Internal Med Progress Note ---
Date of Encounter: 02/21/17 Time of Encounter: 13:22 - Assessment and plan (1) Pressure injury of skin, stage 2 Current Visit: Yes Status: Acute Qualifiers: Pressure ulcer location: foot, unspecified location Laterality: unspecified laterality Qualified Code(s): L89.892 - Pressure ulcer of other site, stage 2 (2) Venous stasis dermatitis Current Visit: Yes Status: Acute Qualifiers: Laterality: bilateral Qualified Code(s): I87.2 - Venous insufficiency ( chronic) (peripheral) (3) Venous stasis of lower extremity Current Visit: No Status: Acute (4) Cellulitis Current Visit: No Status: Acute Qualifiers: Site of cellulitis: extremity Site of cellulitis of extremity: lower extremity Laterality: unspecified laterality Qualified Code(s): L03.119 - Cellulitis of unspecified part of limb (5) SARINA (acute kidney injury) Current Visit: No Status: Acute (6) Elevated serum creatinine Current Visit: No Status: Acute (7) Sacral decubitus ulcer, stage III Current Visit: Yes Status: Acute (8) Urinary tract infection Current Visit: Yes Status: Acute Qualifiers: Urinary tract infection type: acute cystitis Hematuria presence: without hematuria Qualified Code(s): N30.00 - Acute cystitis without hematuria - Subjective Interval history: has decubiti on the buttocks bilaterally lower extremity edema with cellulitis and chronic venous stasis. Heavy weeping. Family states unable to care for her she should go to ECF. Social workers involved in his talk to Adult Protective Services - Constitutional Vitals: Temp Pulse Resp BP Pulse Ox 98.1 F 82 16 128/93 93 02/21/17 11:51 02/21/17 11:51 02/21/17 11:51 02/21/17 11:51 02/21/17 11:51 General appearance: Present: cooperative, pleasant - Neck Neck exam general surgery: Present: supple, trachea midline. Absent: lymphadenopathy - Respiratory Respiratory exam: Present: CTAB. Absent: accessory muscle use, rales, rhonchi, wheezes - Cardiovascular Cardiovascular exam: Present: RRR, +S1, +S2. Absent: diastolic murmur, gallop, rubs, systolic murmur - Expanded Lower Extremities Exam Lower Leg exam: Present: erythema, swelling (Has cellulitis with increased erythema about the bilateral lower extremities. Edema does not quite as bad as stated in the past. The toes are swelled to the point where it is difficult to even see the individual digit) Foot/Toe exam: Present: deformity, erythema, swelling - Skin Skin exam: Present: dry, intact Additional comments: Buttocks are bilaterally grade 2 decubitus. Breaking down very erythematous very tender Internal Medicine: Result - Labs CBC & Chem 7: 02/21/17 05:15 02/21/17 05:15 Labs: Short CBC 02/21/17 Range/Units 05:15 WBC 12.6 H (4.3-11.1) K/mcL Hgb 11.6 (11.5-15.4) g/dL Hct 35.7 (35.3-44.9) % Plt Count 340 (140-400) K/mcL Neutrophils # 9.0 H (1.6-8.9) K/mcL BMP 02/21/17 05:15 Sodium 140 Potassium 4.9 H Chloride 112 H Carbon Dioxide 18 L BUN 32 H Creatinine 1.29 H Glucose 57 L Calcium 8.7 Consult Discharge Plan - Plan Additional Instructions: your blood pressure was normal today. Follow up with your doctor for a recheck. Referrals: Major Steel MD [Primary Care Provider] -
[2017-02-21] MEDS: traMADol 50 MG TABLET PO PRN (18:12)
[2017-02-21] MEDS: Ascorbic Acid 500 MG TABLET PO SCH (20:38)
[2017-02-21] MEDS: Zinc Sulfate 220 MG CAPSULE PO SCH (20:39)
[2017-02-21] MEDS: Levofloxacin 250 MG/50 ML 250 MG/50 ML BAG IVPB SCH (20:41)
[2017-02-22] MEDS: Valsartan 160 MG TABLET PO SCH (08:33)
[2017-02-22] MEDS: Furosemide 40 MG TABLET PO SCH ×2 (08:33→17:15)
[2017-02-22] MEDS: Multivit/Ca/Min/Fe/FA 1 TAB TABLET PO SCH (08:33)
[2017-02-22] MEDS: Zinc Sulfate 220 MG CAPSULE PO SCH ×2 (08:34→20:43)
[2017-02-22] MEDS: *HR* Enoxaparin 30 MG/0.3 ML SYRINGE SQ SCH (08:34)
[2017-02-22] MEDS: Ascorbic Acid 500 MG TABLET PO SCH ×2 (08:34→20:43)
[2017-02-22] MEDS: 0.9 % Sodium Chloride 1,000 ML IVC SCH (10:24)
[2017-02-22] MEDS: *HR* Glimepiride 2 MG TABLET PO SCH (12:29)
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
[2017-02-22] MEDS: traMADol 50 MG TABLET PO PRN (17:15)
[2017-02-22] MEDS: Silvasorb 44.4 ML TUBE TP SCH (17:18)
[2017-02-22] MEDS: Levofloxacin 250 MG/50 ML 250 MG/50 ML BAG IVPB SCH (20:46)
[2017-02-22] MEDS: Ondansetron 4 MG/2 ML VIAL IVP PRN (21:23)
[2017-02-23] MEDS: Multivit/Ca/Min/Fe/FA 1 TAB TABLET PO SCH (08:06)
[2017-02-23] MEDS: Ascorbic Acid 500 MG TABLET PO SCH ×2 (08:06→20:37)
[2017-02-23] MEDS: Zinc Sulfate 220 MG CAPSULE PO SCH ×2 (08:06→20:37)
[2017-02-23] MEDS: *HR* Enoxaparin 30 MG/0.3 ML SYRINGE SQ SCH (08:06)
[2017-02-23] MEDS: *HR* Glimepiride 2 MG TABLET PO SCH (08:06)
[2017-02-23] MEDS: Ondansetron 4 MG/2 ML VIAL IVP PRN ×2 (08:33→17:05)
--- NOTE | 2017-02-23 11:54 | Internal Med Progress Note ---
Date of Encounter: 02/23/17 Time of Encounter: 11:52 - Assessment and plan (1) Pressure injury of skin, stage 2 Current Visit: Yes Status: Acute Assessment and plan: She is continuing to improve. We just have to watch the areas on her buttocks and coccyx. The wound on her left side Qualifiers: Pressure ulcer location: foot, unspecified location Laterality: unspecified laterality Qualified Code(s): L89.892 - Pressure ulcer of other site, stage 2 (2) Venous stasis dermatitis Current Visit: Yes Status: Acute Assessment and plan: Venous stasis dermatitis lower extremities is improving. Qualifiers: Laterality: bilateral Qualified Code(s): I87.2 - Venous insufficiency ( chronic) (peripheral) (3) Cellulitis Current Visit: No Status: Acute Qualifiers: Site of cellulitis: extremity Site of cellulitis of extremity: lower extremity Laterality: unspecified laterality Qualified Code(s): L03.119 - Cellulitis of unspecified part of limb (4) SARINA (acute kidney injury) Current Visit: No Status: Acute Assessment and plan: No functional looks stable (5) Sacral decubitus ulcer, stage III Current Visit: Yes Status: Acute (6) Urinary tract infection Current Visit: Yes Status: Acute Assessment and plan: UTIs being treated with IV antibiotics. Qualifiers: Urinary tract infection type: acute cystitis Hematuria presence: without hematuria Qualified Code(s): N30.00 - Acute cystitis without hematuria - Time Spent With Patient less than 15 minutes - Subjective Interval history: Patient's feeling of nauseousness a.m. She states she just takes a few bites of food. I am, worried about the loss of appetite. I am going to see if I can start some Megace or something. I have also challenged her to just take a sip at a time the Ensure Plus protein and explained that she needs this to heal. Even if he takes 2 hours if she just get 3 a day and it would be helpful - Constitutional Vitals: Temp Pulse Resp BP Pulse Ox 98.2 F 94 18 90/54 92 02/23/17 07:46 02/23/17 07:46 02/23/17 07:46 02/23/17 07:46 02/23/17 07:46 General appearance: Present: cooperative, pleasant - Head Head exam: Present: atraumatic, normocephalic - Neck Neck exam general surgery: Present: supple, trachea midline. Absent: lymphadenopathy - Respiratory Respiratory exam: Present: CTAB. Absent: accessory muscle use, rales, rhonchi, wheezes - Cardiovascular Cardiovascular exam: Present: RRR, +S1, +S2. Absent: diastolic murmur, gallop, rubs, systolic murmur Internal Medicine: Result - Labs CBC & Chem 7: 02/21/17 05:15 02/21/17 05:15 Labs: Labs look stable - VTE Reasons for not Prescribing Prophylaxis: Treatment not Indicated - Low risk for VTE Consult Discharge Plan - Plan Additional Instructions: your blood pressure was normal today. Follow up with your doctor for a recheck. Referrals: Major Steel MD [Primary Care Provider] -
[2017-02-23] MEDS: traMADol 50 MG TABLET PO PRN (15:19)
[2017-02-23] MEDS: Nystatin POWDER 30 GM BOTTLE TP SCH ×2 (15:22→20:38)
[2017-02-23] MEDS: Furosemide 40 MG TABLET PO SCH (15:23)
[2017-02-23] MEDS: Silvasorb 44.4 ML TUBE TP SCH (15:23)
[2017-02-23] MEDS: Valsartan 160 MG TABLET PO SCH (15:24)
[2017-02-23] MEDS: 0.9 % Sodium Chloride 1,000 ML IVC SCH ×2 (20:39→21:32)
[2017-02-23] MEDS: Levofloxacin 250 MG/50 ML 250 MG/50 ML BAG IVPB SCH (20:41)
[2017-02-24] MEDS: traMADol 50 MG TABLET PO PRN (04:45)
[2017-02-24] MEDS: Ondansetron 4 MG/2 ML VIAL IVP PRN (04:46)
--- NOTE | 2017-02-24 08:26 | Internal Med Progress Note ---
Date of Encounter: 02/24/17 Time of Encounter: 08:24 - Assessment and plan (1) Pressure injury of skin, stage 2 Current Visit: Yes Status: Acute Assessment and plan: side of left leg wound care following no discharge noted , keep it dry, off pressure from underlying bed sheets, Air cushion mattress. Qualifiers: Pressure ulcer location: foot, unspecified location Laterality: left Qualified Code(s): L89.892 - Pressure ulcer of other site, stage 2 (2) Venous stasis dermatitis Current Visit: Yes Status: Acute Assessment and plan: ch venous stasis and skin changes . Legs wrapped . needs cleaning and washing of feet and in between folds and keep it dry . Qualifiers: Laterality: bilateral Qualified Code(s): I87.2 - Venous insufficiency ( chronic) (peripheral) (3) Cellulitis Current Visit: No Status: Acute Assessment and plan: Wound is growing, Proteus sensitive to levofloxacin Her overall age , and home situation warrants further assessment and help both for her family as well as for her . Mental health assessment might be helpful . There might be underlying depression .as we and small dose of antidepressants might hep her as well . i will ask psychologist to evaluate her and if needed add a small dose of meds Qualifiers: Site of cellulitis: extremity Site of cellulitis of extremity: lower extremity Laterality: unspecified laterality Qualified Code(s): L03.119 - Cellulitis of unspecified part of limb (4) SARINA (acute kidney injury) Current Visit: No Status: Acute Assessment and plan: Most likely due to dehydrations continue to increase fluid intake improve creatinine (5) Urinary tract infection Current Visit: Yes Status: Acute Assessment and plan: Enteroccocus sensitive to levofloxacin wbc count improving . continue present management Qualifiers: Urinary tract infection type: acute cystitis Hematuria presence: without hematuria Qualified Code(s): N30.00 - Acute cystitis without hematuria (6) Hypotension Current Visit: Yes Status: Acute Assessment and plan: on high dose of Lasix and valsartan meds to be held for now and added slowly later as needed . Asymptomatic at the present time . Stop Lasix and Diovan , if BP starts going up please call to add blood pressure meds . Qualifiers: Hypotension type: hypotension due to drug Qualified Code(s): I95.2 - Hypotension due to drugs (7) Diabetes Current Visit: Yes Status: Acute Assessment and plan: noted to be on a small dose of oral meds for her DM . overall blood sugars are reasonable for her age and overall condition she is also not eating well will het HBa1c , she might not be a good candidate for any oral meds due to her age and risk of hypoglycemia will follow and make adjustments as needed Qualifiers: Diabetes mellitus type: type 2 Diabetes mellitus complication detail: with other skin ulcer Qualified Code(s): E11.622 - Type 2 diabetes mellitus with other skin ulcer (8) Sacral decubitus ulcer, stage III Current Visit: Yes Status: Acute Assessment and plan: stage 3 ulcer mostly on the left hip/sacral area with packing and bloody discharge noted . needs daily packing and wound care - Subjective Interval history: No acute complains except for poor appetite no pain No SOB chest pain nausea vomiting. Her blood pressure had been low and her Lasix and BP meds was held last night and this morning . - Constitutional Vitals: Temp Pulse Resp BP Pulse Ox 98.6 F 86 18 93/66 85 02/24/17 07:34 02/24/17 07:34 02/24/17 07:34 02/24/17 07:34 02/24/17 07:34 General appearance: Present: cooperative, A&O X 3, pleasant, obese. Absent: no acute distress - Eye Eye exam: Present: EOMI, PERRL Pupils: Present: PERRL - Neck Neck exam general surgery: Present: full ROM, supple. Absent: tenderness, nuchal rigidity - Respiratory Respiratory exam: Present: CTAB. Absent: chest wall tenderness, respiratory distress, rhonchi, stridor, wheezes, tachypnea Additional comments: Air entry equal both lung barajas - Cardiovascular Cardiovascular exam: Present: RRR, +S1, +S2. Absent: distant heart sounds, irregular rhythm, JVD, systolic murmur, tachycardia - GI/Abdominal GI/Abdominal exam: Present: normal bowel sounds, soft. Absent: distended, firm , guarding, rebound, rigid, tenderness Additional comments: examination within normal limits no supra pubic pain or tenderness - Extremities Exam Additional comments: has yasmani bandage rapped around her legs due to chronic edema , feet skin swelling chronic swelling due to chronic edema and skin thickness , - Skin Skin exam: Present: excoriation, mottled Additional comments: left thigh stage 2 ulcer large area left hip area wound with packing stage 3 some discharge noted buttocks skin excoriating especially folds and coccyx area . Internal Medicine: Result - Labs CBC & Chem 7: 02/21/17 05:15 02/21/17 05:15 - VTE Reasons for not Prescribing Prophylaxis: Treatment not Indicated - Low risk for VTE Documentation of Mechanical Device: Graduated compression elastic hosiery Consult Discharge Plan - Plan Additional Instructions: your blood pressure was normal today. Follow up with your doctor for a recheck. Referrals: Major Steel MD [Primary Care Provider] -
[2017-02-24] MEDS: Zinc Sulfate 220 MG CAPSULE PO SCH ×2 (09:56→20:41)
[2017-02-24] MEDS: Multivit/Ca/Min/Fe/FA 1 TAB TABLET PO SCH (09:56)
[2017-02-24] MEDS: *HR* Enoxaparin 30 MG/0.3 ML SYRINGE SQ SCH (09:56)
[2017-02-24] MEDS: *HR* Glimepiride 2 MG TABLET PO SCH (09:56)
[2017-02-24] MEDS: Nystatin POWDER 30 GM BOTTLE TP SCH ×2 (09:57→20:44)
[2017-02-24] MEDS: Ascorbic Acid 500 MG TABLET PO SCH ×2 (09:57→20:41)
[2017-02-24] MEDS: Silvasorb 44.4 ML TUBE TP SCH (09:58)
[2017-02-24] MEDS: 0.9 % Sodium Chloride 1,000 ML IVC SCH (18:13)
[2017-02-24] MEDS: Levofloxacin 250 MG/50 ML 250 MG/50 ML BAG IVPB SCH (20:42)
--- NOTE | 2017-02-25 08:02 | Internal Med Progress Note ---
Date of Encounter: 02/25/17 Time of Encounter: 08:00 - Assessment and plan (1) Pressure injury of skin, stage 2 Current Visit: Yes Status: Acute Assessment and plan: continue local dressing on stage two ulcer , keep pressure off any material rubbing skin , local legs continue Alex bandages and local skin care Qualifiers: Pressure ulcer location: foot, unspecified location Laterality: left Qualified Code(s): L89.892 - Pressure ulcer of other site, stage 2 (2) Venous stasis dermatitis Current Visit: Yes Status: Acute Assessment and plan: continue conservative treatment, keep leg raised Qualifiers: Laterality: bilateral Qualified Code(s): I87.2 - Venous insufficiency ( chronic) (peripheral) (3) Cellulitis Current Visit: No Status: Acute Assessment and plan: on IV antibiotics stable improving .Labs pending for today Qualifiers: Site of cellulitis: extremity Site of cellulitis of extremity: lower extremity Laterality: unspecified laterality Qualified Code(s): L03.119 - Cellulitis of unspecified part of limb (4) SARINA (acute kidney injury) Current Visit: No Status: Acute Assessment and plan: labs are pending . She has been hydrated and after stopping Lasix and Alex ,labs should improve (5) Urinary tract infection Current Visit: Yes Status: Acute Assessment and plan: on IV ,she has indwelling catheter since she has been urinating in her diapers and would make it difficult for skin care due to his skin breaks . It should be removed as soon skin gets better Qualifiers: Urinary tract infection type: acute cystitis Hematuria presence: without hematuria Qualified Code(s): N30.00 - Acute cystitis without hematuria (6) Hypotension Current Visit: Yes Status: Acute Assessment and plan: meds donna as lasix and Valsotarn on hold at the present time . 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 continue present management Wound team on board following . - Subjective Interval history: No complains of feeling depressed no pain occasional dizziness when she changes her position no pain , In bed sitting upwards Afebrile , Vitals noted had another episode of low systolic , Blood sugars overall stable - Constitutional Vitals: Temp Pulse Resp BP Pulse Ox 98.4 F 92 20 99/67 94 02/25/17 07:00 02/25/17 07:00 02/25/17 07:00 02/25/17 07:00 02/25/17 07:00 General appearance: Present: cooperative, A&O X 3, morbidly obese, pleasant, obese. Absent: no acute distress - Eye Eye exam: Present: EOMI, PERRL. Absent: scleral icterus, conjuntiva pink - Neck Neck exam general surgery: Present: full ROM, supple. Absent: nuchal rigidity - Respiratory Respiratory exam: Present: CTAB. Absent: chest wall tenderness, decreased breath sounds, respiratory distress, rhonchi, stridor, wheezes, tachypnea - Cardiovascular Cardiovascular exam: Present: RRR, +S1, +S2. Absent: irregular rhythm, JVD, rubs, tachycardia - GI/Abdominal GI/Abdominal exam: Present: normal bowel sounds, soft. Absent: distended, firm , guarding, rebound, rigid, tenderness - Extremities Exam Extremities exam: Present: pedal edema Additional comments: chronic skin changes both legs , has alex wrapped around - Skin Skin exam: Present: excoriation Additional comments: has skin ulcers both stage 2 and three , left thigh one are of deep wound with scab no discharge , left sacral and hip area there is a stage 3 wound with packing and both buttocks stage two skin lacerations no discharge Internal Medicine: Result - Labs CBC & Chem 7: 02/21/17 05:15 02/21/17 05:15 - VTE Reasons for not Prescribing Prophylaxis: Treatment not Indicated - Low risk for VTE Documentation of Mechanical Device: Graduated compression elastic hosiery Consult Discharge Plan - Plan Additional Instructions: your blood pressure was normal today. Follow up with your doctor for a recheck. Referrals: Major Steel MD [Primary Care Provider] -
[2017-02-25] MEDS: *HR* Enoxaparin 30 MG/0.3 ML SYRINGE SQ SCH (08:36)
[2017-02-25] MEDS: Ascorbic Acid 500 MG TABLET PO SCH ×2 (08:37→20:46)
[2017-02-25] MEDS: Ondansetron 4 MG/2 ML VIAL IVP PRN (08:37)
[2017-02-25] MEDS: Zinc Sulfate 220 MG CAPSULE PO SCH ×2 (08:37→20:45)
[2017-02-25] MEDS: Multivit/Ca/Min/Fe/FA 1 TAB TABLET PO SCH (08:37)
[2017-02-25] MEDS: *HR* Glimepiride 2 MG TABLET PO SCH (08:37)
[2017-02-25] MEDS: Silvasorb 44.4 ML TUBE TP SCH (08:38)
[2017-02-25] MEDS: Nystatin POWDER 30 GM BOTTLE TP SCH ×2 (08:38→20:46)
[2017-02-25] MEDS: 0.9 % Sodium Chloride 1,000 ML IVC SCH ×2 (08:42→17:08)
[2017-02-25 09:34] LABS: Basophils # 0.1 K/mcL (0.0-0.2); Basophils % 0.3 %; Eosinophils % 1.6 %; Hematocrit 41.6 % (35.3-44.9); Hemoglobin 13.4 g/dL (11.5-15.4); Immature Granulocytes % 0.8 % (0-4); Lymphocytes # 2.2 K/mcL (0.6-4.6); Lymphocytes % 14.1 %; Mean Corpuscular HGB Conc 32.2 g/dL (31.6-35.5); Mean Corpuscular Hemoglobin 28.7 pg (28.0-33.3); Mean Corpuscular Volume 89.1 fL (83.0-100.0); Mean Platelet Volume 11.2 fL (9.4-12.4); Monocytes # 1.3 K/mcL (0.0-1.3); Monocytes % 8.1 %; Neutrophils # 11.6 K/mcL (1.6-8.9); Platelet Count 316 K/mcL (140-400); Red Blood Count 4.67 M/mcL (3.82-4.97); Red Cell Distribution Width 15.4 % (11.5-14.5); Segmented Neutrophils % 75.1 %
[2017-02-25 09:45] LABS: Eosinophils # 0.3 K/mcL (0.0-0.6)
[2017-02-25 09:47] LABS: Anisocytosis 1+ (Not Present)
[2017-02-25 09:51] LABS: Calcium 8.7 mg/dL (8.6-10.8); Potassium 3.6 mEq/L (3.5-4.5)
[2017-02-25] MEDS: traMADol 50 MG TABLET PO PRN (17:21)
[2017-02-25 18:28] LABS: Hemoglobin A1C 6.2 %
[2017-02-25] MEDS: Levofloxacin 250 MG/50 ML 250 MG/50 ML BAG IVPB SCH (20:45)
[2017-02-26] MEDS: Ondansetron 4 MG/2 ML VIAL IVP PRN (08:16)
[2017-02-26] MEDS: *HR* Enoxaparin 30 MG/0.3 ML SYRINGE SQ SCH (08:17)
[2017-02-26] MEDS: Multivit/Ca/Min/Fe/FA 1 TAB TABLET PO SCH (08:17)
[2017-02-26] MEDS: *HR* Glimepiride 2 MG TABLET PO SCH (08:17)
[2017-02-26] MEDS: Silvasorb 44.4 ML TUBE TP SCH (08:18)
[2017-02-26] MEDS: Ascorbic Acid 500 MG TABLET PO SCH ×2 (08:18→19:32)
[2017-02-26] MEDS: Nystatin POWDER 30 GM BOTTLE TP SCH ×2 (08:18→19:32)
[2017-02-26] MEDS: Zinc Sulfate 220 MG CAPSULE PO SCH ×2 (09:00→19:30)
--- NOTE | 2017-02-26 15:55 | Internal Med Progress Note ---
Date of Encounter: 02/26/17 Time of Encounter: 15:53 - Assessment and plan (1) Pressure injury of skin, stage 2 Current Visit: Yes Status: Acute Assessment and plan: Said lower extremities are improved the swelling is down and need to see with wound care how her buttocks are healing. Qualifiers: Pressure ulcer location: foot, unspecified location Laterality: left Qualified Code(s): L89.892 - Pressure ulcer of other site, stage 2 (2) Venous stasis dermatitis Current Visit: Yes Status: Acute Assessment and plan: Venous stasis is currently chronic but it showing some improvement from the acute Qualifiers: Laterality: bilateral Qualified Code(s): I87.2 - Venous insufficiency ( chronic) (peripheral) (3) Cellulitis Current Visit: No Status: Acute Assessment and plan: Improved Qualifiers: Site of cellulitis: extremity Site of cellulitis of extremity: lower extremity Laterality: unspecified laterality Qualified Code(s): L03.119 - Cellulitis of unspecified part of limb (4) SARINA (acute kidney injury) Current Visit: No Status: Acute (5) Sacral decubitus ulcer, stage III Current Visit: Yes Status: Acute Assessment and plan: This is markedly improved. (6) Urinary tract infection Current Visit: Yes Status: Acute Assessment and plan: UTIs being treated but the patient has a white count if no fever in a motor try to look at her chest x-ray by the a.m. Qualifiers: Urinary tract infection type: acute cystitis Hematuria presence: without hematuria Qualified Code(s): N30.00 - Acute cystitis without hematuria - Time Spent With Patient less than 15 minutes - Subjective Interval history: I started the patient on Megace. She is eating Percent or less. States she has no appetite. Does complain of some nausea in the morning. The central lab technician nurse came over from [place] to [place] Since we had no access. And we will see how this all works out. I am going to transfer her to [facility]. - Constitutional Vitals: Temp Pulse Resp BP Pulse Ox 97.8 F 71 16 103/62 92 02/26/17 12:00 02/26/17 12:00 02/26/17 12:00 02/26/17 12:00 02/26/17 12:00 General appearance: Present: cooperative, A&O X 3, morbidly obese, pleasant, obese. Absent: no acute distress - Head Head exam: Present: atraumatic, normal inspection, normocephalic - Neck Neck exam general surgery: Present: supple, trachea midline. Absent: lymphadenopathy - Respiratory Respiratory exam: Present: CTAB. Absent: accessory muscle use, rales, rhonchi, wheezes - Cardiovascular Cardiovascular exam: Present: RRR, +S1, +S2. Absent: diastolic murmur, gallop, rubs, systolic murmur Internal Medicine: Result - Labs CBC & Chem 7: 02/25/17 09:25 02/25/17 09:25 Labs: Lab looks pretty good overall - VTE Reasons for not Prescribing Prophylaxis: Treatment not Indicated - Low risk for VTE Documentation of Mechanical Device: Graduated compression elastic hosiery Consult Discharge Plan - Plan Additional Instructions: your blood pressure was normal today. Follow up with your doctor for a recheck. Referrals: Major Steel MD [Primary Care Provider] -
[2017-02-26] MEDS: Levofloxacin 250 MG/50 ML 250 MG/50 ML BAG IVPB SCH (21:00)
[2017-02-27] MEDS: Zinc Sulfate 220 MG CAPSULE PO SCH (08:45)
[2017-02-27] MEDS: Ascorbic Acid 500 MG TABLET PO SCH ×2 (08:45→09:10)
[2017-02-27] MEDS: *HR* Enoxaparin 30 MG/0.3 ML SYRINGE SQ SCH (08:45)
[2017-02-27] MEDS: Ondansetron 4 MG/2 ML VIAL IVP PRN (08:45)
[2017-02-27] MEDS: Multivit/Ca/Min/Fe/FA 1 TAB TABLET PO SCH (08:45)
[2017-02-27] MEDS: *HR* Glimepiride 2 MG TABLET PO SCH (08:45)
[2017-02-27] MEDS ORDERED: Megestrol Acetate 400 MG/10 ML UDC PO SCH (09:00)
[2017-02-27] MEDS: Nystatin POWDER 30 GM BOTTLE TP SCH (09:05)
[2017-02-27] MEDS: Silvasorb 44.4 ML TUBE TP SCH (09:05)
[2017-02-27] MEDS: 0.9 % Sodium Chloride 1,000 ML IVC SCH ×2 (09:06→09:07)
--- NOTE | 2017-02-27 15:24 | Internal Med Progress Note ---
Date of Encounter: 02/27/17 Time of Encounter: 15:22 - Assessment and plan (1) Pressure injury of skin, stage 2 Current Visit: Yes Status: Acute Qualifiers: Pressure ulcer location: foot, unspecified location Laterality: left Qualified Code(s): L89.892 - Pressure ulcer of other site, stage 2 (2) Venous stasis dermatitis Current Visit: Yes Status: Acute Qualifiers: Laterality: bilateral Qualified Code(s): I87.2 - Venous insufficiency ( chronic) (peripheral) (3) Cellulitis Current Visit: No Status: Acute Qualifiers: Site of cellulitis: extremity Site of cellulitis of extremity: lower extremity Laterality: unspecified laterality Qualified Code(s): L03.119 - Cellulitis of unspecified part of limb (4) SARINA (acute kidney injury) Current Visit: No Status: Acute (5) Sacral decubitus ulcer, stage III Current Visit: Yes Status: Acute (6) Urinary tract infection Current Visit: Yes Status: Acute Qualifiers: Urinary tract infection type: acute cystitis Hematuria presence: without hematuria Qualified Code(s): N30.00 - Acute cystitis without hematuria - Subjective Interval history: I started the patient on Megace. She is eating Percent or less. States she has no appetite. Does complain of some nausea in the morning. The forest ranger technician nurse came over from [place] to [place] Since we had no access. And we will see how this all works out. I am going to transfer her to [facility]. - Constitutional Vitals: Temp Pulse Resp BP Pulse Ox 97.6 F 75 16 130/76 91 02/27/17 11:00 02/27/17 11:00 02/27/17 11:00 02/27/17 11:00 02/27/17 11:00 General appearance: Present: cooperative, A&O X 3, morbidly obese, pleasant, obese. Absent: no acute distress - Head Head exam: Present: atraumatic, normocephalic - Neck Neck exam general surgery: Present: supple, trachea midline. Absent: lymphadenopathy - Respiratory Respiratory exam: Present: CTAB. Absent: accessory muscle use, rales, rhonchi, wheezes - Cardiovascular Cardiovascular exam: Present: RRR, +S1, +S2. Absent: diastolic murmur, gallop, rubs, systolic murmur - GI/Abdominal GI/Abdominal exam: Present: normal bowel sounds, soft, no peritoneal signs. Absent: distended, tenderness Internal Medicine: Result - Labs CBC & Chem 7: 02/25/17 09:25 02/25/17 09:25 Labs: Like May be reflecting a possible developing infiltrate and left basilar area. In addition him to repeat the urine - Impressions Impressions Chest X-Ray 02/27/17 06:00 IMPRESSION: Minimal streaky left basilar opacity may relate to atelectasis or developing infiltrate. Right upper extremity catheter which may reflect a PICC line. Catheter tip projects to the right axillary region, likely in the distal right axillary vein. Suggest repositioning to place more centrally. D/ / 02/27/2017 07:32:02 Kris Rincon MD / [place] Interpreting Provider: Kris Rincon MD - VTE Reasons for not Prescribing Prophylaxis: Treatment not Indicated - Low risk for VTE Documentation of Mechanical Device: Graduated compression elastic hosiery Consult Discharge Plan - Plan Additional Instructions: your blood pressure was normal today. Follow up with your doctor for a recheck. Referrals: Major Steel MD [Primary Care Provider] -
[2017-02-27 16:32] VITALS: BP 116/87
[2017-02-27 17:17] LABS: Bilirubin,Urine Negative (Negative); Blood,Urine Large (Negative); Clarity,Urine Cloudy (Clear); Color,Urine Yellow (Yellow); Glucose,Urine (UA) Normal (Normal); Ketones,Urine Negative (Negative); Leukocyte Esterase,Urine Large (Negative); Nitrite,Urine Positive (Negative); PH,Urine 6.5 pH Units (5.0-8.0); Protein,Urine 30 mg/dL (Neg-Trace); Urobilinogen,Urine Normal (Normal)
--- NOTE | 2017-03-01 13:49 | Discharge Summary ---
Date of Encounter: 03/02/17 Time of Encounter: 13:46 - Discharge Diagnosis (1) Pressure injury of skin, stage 2 Priority: Primary Status: Acute Comments: Patient was improved and transferred to [place] Qualifiers: Pressure ulcer location: dorsum of foot Laterality: left Qualified Code(s ): L89.892 - Pressure ulcer of other site, stage 2 (2) Venous stasis dermatitis Priority: Primary Status: Chronic Comments: Chronic but Qualifiers: Laterality: bilateral Qualified Code(s): I87.2 - Venous insufficiency ( chronic) (peripheral) (3) Cellulitis Priority: Primary (Much improved) Status: Acute Comments: Touch improved Qualifiers: Site of cellulitis: extremity Site of cellulitis of extremity: lower extremity Laterality: unspecified laterality Qualified Code(s): L03.119 - Cellulitis of unspecified part of limb (4) SARINA (acute kidney injury) Priority: Secondary Status: Acute Comments: Stable (5) Sacral decubitus ulcer, stage III Priority: Secondary Status: Acute Comments: This also has improved (6) Urinary tract infection Priority: Secondary Status: Acute Comments: Currently being treated with IV antibiotics Qualifiers: Urinary tract infection type: acute cystitis Hematuria presence: without hematuria Qualified Code(s): N30.00 - Acute cystitis without hematuria - Discharge Medications Home Medications: Atorvastatin [Lipitor] 40 mg PO HS 01/07/15 [History] Diclofenac Sodium [Voltaren] 100 gm TP TID 01/07/15 [History] Furosemide [Lasix] 80 mg PO BID 01/07/15 [History] Glimepiride [Amaryl] 2 mg PO DAILY 01/07/15 [History] Omeprazole [Prilosec] 40 mg PO DAILY 01/07/15 [History] Valsartan [Diovan] 160 mg PO DAILY 01/07/15 [History] Clindamycin HCl [Cleocin HCl] 300 mg PO TID 7 Days #21 cap 01/25/17 [Rx] Tramadol HCl [Ultram] 50 mg PO BID PRN 10 Days #20 tablet 01/25/17 [Rx] Allergies/Adverse Reactions: 3 Allergy/AdvReac Type Severity Reaction Status Date / Time cephalexin [From Keflex] Allergy Itching Verified 02/20/17 21:58 sulfamethoxazole Allergy Itching Verified 02/20/17 21:58 [From Bactrim] Date of admission: 02/20/17 22:55 Primary care physician: Major Steel MD Consults: 02/26/17 11:30 PICC LINE [Consult to Invasive Line Access Team] [CONS] Routine Reason for Consult: No IV access Line Type: EPIV Call Completed: Yes 02/26/17 16:10 Consult to Invasive Line Access Team [CONS] Routine Reason for Consult: need for extended IV atbs. limited vascular access Line Type: Midline Discharging clinician: Vladislav Arreaga Anticipated date of discharge: 02/27/17 - Patient Status Disposition: Home Health Service Condition: Fair Functional capacity at discharge: bed bound Overall status at discharge: patient is not back to baseline - Discharge Instructions Follow Up With: Major Steel MD [Primary Care Provider] - Forms: ED Satisfaction Letter Additional Instructions: your blood pressure was normal today. Follow up with your doctor for a recheck. - Diet and Activity Activity: as per physical therapy, increase activity as tolerated Diet: advance to your usual diet, diabetic diet Interval History: Patient was admitted from the emergency room with cellulitis bilateral lower extremities were broken down she was weeping along with chronic venous stasis. Also she had lesions to the buttocks the left side and to her coccyx she was not receiving proper care at home. Hospital course: Ms. Trevino is a 86 year old female who was brought in for her skin lesions and is now stronger and they have improved and she was transferred swelling Time spent discussing smoking cessation with patient: 3 to 10 minutes - Time Spent with Patient Total time spent providing and/or coordinating discharge services: Less than 30 minutes - Constitutional Vitals: Temp Pulse Resp BP Pulse Ox 98.0 F 87 16 116/87 98 02/27/17 16:31 02/27/17 16:31 02/27/17 16:31 02/27/17 16:31 02/27/17 16:31 General appearance: Present: cooperative, A&O X 3, morbidly obese, pleasant, obese. Absent: no acute distress - Head Head exam: Present: atraumatic, normal inspection, normocephalic - Neck Neck exam general surgery: Present: supple, trachea midline. Absent: lymphadenopathy - Respiratory Respiratory exam: Present: CTAB. Absent: accessory muscle use, rales, rhonchi, wheezes - Cardiovascular Cardiovascular exam: Present: RRR, +S1, +S2. Absent: diastolic murmur, gallop, rubs, systolic murmur - GI/Abdominal GI/Abdominal exam: Present: normal bowel sounds, soft, no peritoneal signs. Absent: distended, tenderness - VTE Reasons for not Prescribing Prophylaxis: Treatment not Indicated - Low risk for VTE Documentation of Mechanical Device: Graduated compression elastic hosiery
== END 2017-02-27 16:55 | disposition home health service (06) | DRG 602 ==
LOC: EMEROOGRE 18:37 → INPGRE 18:37
PROVIDERS: ADMIT Internal Medicine; ATTEND Internal Medicine

== ENCOUNTER 2017-02-27 16:34 | Inpatient (IN) ==
[2017-02-27] MEDS ORDERED: Acetaminophen 325 MG TABLET PO PRN (18:14)
[2017-02-27] MEDS ORDERED: Ondansetron 4 MG/2 ML VIAL IVP PRN (18:20)
[2017-02-27] MEDS ORDERED: Naloxone 0.4 MG/ML INJ IVP PRN (18:38)
[2017-02-27] MEDS: 0.9 % Sodium Chloride 1,000 ML IV SCH (18:41)
[2017-02-27] MEDS: Levofloxacin 250 MG/50 ML 250 MG/50 ML BAG IVPB SCH (20:19)
[2017-02-27] MEDS: Nystatin POWDER 30 GM BOTTLE TP SCH (20:19)
[2017-02-27] MEDS: (Diclofenac Sodium [Voltaren] 100 GM) TP SCH (20:22)
[2017-02-27] MEDS: Ascorbic Acid 500 MG TABLET PO SCH (20:22)
[2017-02-28] MEDS: (Diclofenac Sodium [Voltaren] 100 GM) TP SCH ×2 (09:18→14:22)
[2017-02-28] MEDS: Ascorbic Acid 500 MG TABLET PO SCH ×2 (09:19→22:04)
[2017-02-28] MEDS: *HR* Enoxaparin 30 MG/0.3 ML SYRINGE SQ SCH (09:41)
[2017-02-28] MEDS: Multivit/Ca/Min/Fe/FA 1 TAB TABLET PO SCH (09:41)
[2017-02-28] MEDS: Zinc Sulfate 220 MG CAPSULE PO SCH (09:41)
[2017-02-28] MEDS: Megestrol Acetate 400 MG/10 ML UDC PO SCH (09:41)
[2017-02-28] MEDS: *HR* Glimepiride 2 MG TABLET PO SCH (09:41)
[2017-02-28] MEDS: Nystatin POWDER 30 GM BOTTLE TP SCH ×2 (09:42→22:08)
[2017-02-28] MEDS: Silvasorb 44.4 ML TUBE TP SCH (14:22)
--- NOTE | 2017-02-28 16:23 | Internal Med Progress Note ---
Date of Encounter: 02/28/17 Time of Encounter: 16:21 - Assessment and plan (1) Pressure injury of skin, stage 2 Current Visit: Yes Status: Acute Assessment and plan: Buttocks show to stage II lesions which are improving. Qualifiers: Pressure ulcer location: foot, unspecified location Laterality: left Qualified Code(s): L89.892 - Pressure ulcer of other site, stage 2 (2) Venous stasis dermatitis Current Visit: Yes Status: Acute Assessment and plan: Lower extremities bilaterally were showing cellulitis they are much improved Qualifiers: Laterality: bilateral Qualified Code(s): I87.2 - Venous insufficiency ( chronic) (peripheral) (3) Venous stasis of lower extremity Current Visit: No Status: Acute (4) Sacral decubitus ulcer, stage III Current Visit: No Status: Acute Assessment and plan: This is improved also (5) Urinary tract infection Current Visit: No Status: Acute Qualifiers: Urinary tract infection type: acute cystitis Hematuria presence: without hematuria Qualified Code(s): N30.00 - Acute cystitis without hematuria - Time Spent With Patient less than 15 minutes - Subjective Interval history: Shabnam is insistent on being discharged home. A workup to find a new home health company. Also the family states that 2 new caregivers. Because it is Shabnam and daughter that has physical disabilities. In addition - Constitutional Vitals: Temp Pulse Resp BP Pulse Ox 97.7 F 68 18 116/60 95 02/28/17 07:41 02/28/17 13:55 02/28/17 13:55 02/28/17 13:55 02/28/17 13:55 - Head Head exam: Present: atraumatic, normal inspection, normocephalic - Neck Neck exam general surgery: Present: supple, trachea midline. Absent: lymphadenopathy - Respiratory Respiratory exam: Present: CTAB. Absent: accessory muscle use, rales, rhonchi, wheezes - Cardiovascular Cardiovascular exam: Present: RRR, +S1, +S2. Absent: diastolic murmur, gallop, rubs, systolic murmur - GI/Abdominal GI/Abdominal exam: Present: normal bowel sounds, soft, no peritoneal signs. Absent: distended, tenderness Internal Medicine: Result - Labs Labs: Pending Consult Discharge Plan - Plan Referrals: Major Steel MD [Primary Care Provider] -
[2017-02-28] MEDS: 0.9 % Sodium Chloride 1,000 ML IV SCH (22:09)
[2017-02-28] MEDS: Levofloxacin 250 MG/50 ML 250 MG/50 ML BAG IVPB SCH (22:10)
[2017-03-01] MEDS: (Diclofenac Sodium [Voltaren] 100 GM) TP SCH ×4 (03:29→21:43)
[2017-03-01] MEDS: traMADol 50 MG TABLET PO PRN ×3 (03:35→21:36)
[2017-03-01] MEDS: Ascorbic Acid 500 MG TABLET PO SCH ×2 (09:58→21:43)
[2017-03-01] MEDS: *HR* Enoxaparin 30 MG/0.3 ML SYRINGE SQ SCH (10:12)
[2017-03-01] MEDS: *HR* Glimepiride 2 MG TABLET PO SCH (10:13)
[2017-03-01] MEDS: Megestrol Acetate 400 MG/10 ML UDC PO SCH (10:13)
[2017-03-01] MEDS: Zinc Sulfate 220 MG CAPSULE PO SCH (10:13)
[2017-03-01] MEDS: Multivit/Ca/Min/Fe/FA 1 TAB TABLET PO SCH (10:13)
--- NOTE | 2017-03-01 11:49 | Internal Med Progress Note ---
Date of Encounter: 03/01/17 Time of Encounter: 11:47 - Assessment and plan (1) Pressure injury of skin, stage 2 Current Visit: Yes Status: Acute Assessment and plan: This is been addressed. The pressure injury of the stage II of the buttocks actually the left side laceration looks like it is healing no. Drainage or erythema and lastly the tube it is about the coccyx really looks like it has progressed quite nicely Qualifiers: Pressure ulcer location: foot, unspecified location Laterality: left Qualified Code(s): L89.892 - Pressure ulcer of other site, stage 2 (2) Venous stasis dermatitis Current Visit: Yes Status: Acute Assessment and plan: Chronic Qualifiers: Laterality: bilateral Qualified Code(s): I87.2 - Venous insufficiency ( chronic) (peripheral) (3) Venous stasis of lower extremity Current Visit: No Status: Acute (4) Sacral decubitus ulcer, stage III Current Visit: No Status: Acute Assessment and plan: As I said progressing nicely (5) Urinary tract infection Current Visit: No Status: Acute Assessment and plan: Patient has UTI which is currently being treated with IV drug Qualifiers: Urinary tract infection type: acute cystitis Hematuria presence: without hematuria Qualified Code(s): N30.00 - Acute cystitis without hematuria - Time Spent With Patient less than 15 minutes - Subjective Interval history: Obese legs of the best thing looks is unknown. The swelling is down the cellulitis is diminished erythema is virtually resolved and her buttocks are healing slowly. She is finally eating better and number encouraged - Constitutional Vitals: Temp Pulse Resp BP Pulse Ox 98.1 F 86 16 142/72 93 03/01/17 07:17 03/01/17 07:17 03/01/17 07:17 03/01/17 07:17 03/01/17 07:17 - Head Head exam: Present: atraumatic, normal inspection, normocephalic - Respiratory Respiratory exam: Present: CTAB. Absent: accessory muscle use, rales, rhonchi, wheezes - Cardiovascular Cardiovascular exam: Present: RRR, +S1, +S2. Absent: diastolic murmur, gallop, rubs, systolic murmur - GI/Abdominal GI/Abdominal exam: Present: normal bowel sounds, soft, no peritoneal signs. Absent: distended, tenderness Internal Medicine: Result - Labs Labs: I will recheck the lab and a Consult Discharge Plan - Plan Referrals: Major Steel MD [Primary Care Provider] -
[2017-03-01] MEDS: Nystatin POWDER 30 GM BOTTLE TP SCH ×2 (15:38→21:44)
[2017-03-01] MEDS: Silvasorb 44.4 ML TUBE TP SCH (15:39)
[2017-03-01] MEDS: Levofloxacin 250 MG/50 ML 250 MG/50 ML BAG IVPB SCH (21:37)
[2017-03-02 06:36] LABS: Basophils % 0.3 %; Eosinophils # 0.4 K/mcL (0.0-0.6); Eosinophils % 2.6 %; Hematocrit 35.3 % (35.3-44.9); Hemoglobin 11.7 g/dL (11.5-15.4); Immature Granulocytes % 0.6 % (0-4); Lymphocytes % 11.5 %; Mean Corpuscular HGB Conc 33.1 g/dL (31.6-35.5); Mean Corpuscular Hemoglobin 28.6 pg (28.0-33.3); Mean Corpuscular Volume 86.3 fL (83.0-100.0); Mean Platelet Volume 10.1 fL (9.4-12.4); Monocytes # 1.3 K/mcL (0.0-1.3); Monocytes % 8.8 %; Neutrophils # 11.6 K/mcL (1.6-8.9); Platelet Count 353 K/mcL (140-400); Red Blood Count 4.09 M/mcL (3.82-4.97); Red Cell Distribution Width 15.4 % (11.5-14.5); Segmented Neutrophils % 76.2 %
[2017-03-02 06:39] LABS: Basophils # 0.1 K/mcL (0.0-0.2); Lymphocytes # 1.8 K/mcL (0.6-4.6)
[2017-03-02 07:34] LABS: BUN/Creatinine Ratio 17 (6-26); Blood Urea Nitrogen 12 mg/dL (7-20); Calcium 8.1 mg/dL (8.6-10.8); Carbon Dioxide 20 mEq/L (19-29); Chloride 110 mEq/L (98-109); Glucose 67 mg/dL (70-99); Osmolality,Calculated 286 (280-300); Potassium 3.5 mEq/L (3.5-4.5); Sodium 139 mEq/L (136-145); eGFR For African Americans > 60 (> 60); eGFR For Non-African Americans > 60 (> 60)
[2017-03-02] MEDS: *HR* Glimepiride 2 MG TABLET PO SCH (10:18)
[2017-03-02] MEDS: Zinc Sulfate 220 MG CAPSULE PO SCH (10:18)
[2017-03-02] MEDS: Multivit/Ca/Min/Fe/FA 1 TAB TABLET PO SCH (10:18)
[2017-03-02] MEDS: Ascorbic Acid 500 MG TABLET PO SCH ×3 (10:19→21:05)
[2017-03-02] MEDS: traMADol 50 MG TABLET PO PRN (10:19)
[2017-03-02] MEDS: *HR* Enoxaparin 30 MG/0.3 ML SYRINGE SQ SCH (10:19)
[2017-03-02] MEDS: Megestrol Acetate 400 MG/10 ML UDC PO SCH (10:19)
[2017-03-02] MEDS: (Diclofenac Sodium [Voltaren] 100 GM) TP SCH ×3 (10:21→21:15)
[2017-03-02] MEDS: 0.9 % Sodium Chloride 1,000 ML IV SCH ×2 (13:27→13:56)
--- NOTE | 2017-03-02 13:45 | Internal Med Progress Note ---
Date of Encounter: 03/02/17 Time of Encounter: 13:42 - Assessment and plan (1) Pressure injury of skin, stage 2 Current Visit: Yes Status: Acute Qualifiers: Pressure ulcer location: dorsum of foot Laterality: left Qualified Code(s ): L89.892 - Pressure ulcer of other site, stage 2 (2) Venous stasis dermatitis Current Visit: Yes Status: Chronic Assessment and plan: Much improved overall Qualifiers: Laterality: bilateral Qualified Code(s): I87.2 - Venous insufficiency ( chronic) (peripheral) (3) Venous stasis of lower extremity Current Visit: No Status: Acute Assessment and plan: Patient has chronic venous stasis. (4) Sacral decubitus ulcer, stage III Current Visit: No Status: Acute Assessment and plan: The decubitus ulcer is progressing very nicely (5) Urinary tract infection Current Visit: No Status: Acute Assessment and plan: UTIs currently being treated Qualifiers: Urinary tract infection type: acute cystitis Hematuria presence: without hematuria Qualified Code(s): N30.00 - Acute cystitis without hematuria - Time Spent With Patient less than 15 minutes - Subjective Interval history: Wound care has recommended that no weightbearing on her feet at this time. This is really going to put a [place] therapy. But she will be going home on the first week and I will send home health thereto continues in therapy. She is adamant about going home and refuses to hear anything about an ECF' - Constitutional Vitals: Temp Pulse Resp BP Pulse Ox 98.5 F 75 16 130/56 93 03/02/17 07:49 03/02/17 07:49 03/01/17 19:00 03/02/17 07:49 03/02/17 07:49 - Head Head exam: Present: atraumatic, normal inspection, normocephalic - Neck Neck exam general surgery: Present: supple, trachea midline. Absent: lymphadenopathy - Respiratory Respiratory exam: Present: CTAB. Absent: accessory muscle use, rales, rhonchi, wheezes - Cardiovascular Cardiovascular exam: Present: RRR, +S1, +S2. Absent: diastolic murmur, gallop, rubs, systolic murmur - GI/Abdominal GI/Abdominal exam: Present: normal bowel sounds, soft, no peritoneal signs. Absent: distended, tenderness Internal Medicine: Result - Labs CBC & Chem 7: 03/02/17 06:23 03/02/17 06:23 Labs: Short CBC 03/02/17 Range/Units 06:23 WBC 15.2 H (4.3-11.1) K/mcL Hgb 11.7 D (11.5-15.4) g/dL Hct 35.3 (35.3-44.9) % Plt Count 353 (140-400) K/mcL Neutrophils # 11.6 H (1.6-8.9) K/mcL BMP 03/02/17 06:23 Sodium 139 Potassium 3.5 Chloride 110 H Carbon Dioxide 20 BUN 12 Creatinine 0.69 Glucose 67 L Calcium 8.1 L Lab is stable Consult Discharge Plan - Plan Referrals: Major Steel MD [Primary Care Provider] -
[2017-03-02] MEDS: Silvasorb 44.4 ML TUBE TP SCH (18:00)
[2017-03-02] MEDS: Nystatin POWDER 30 GM BOTTLE TP SCH (18:59)
[2017-03-02] MEDS: Levofloxacin 250 MG/50 ML 250 MG/50 ML BAG IVPB SCH (21:06)
[2017-03-03] MEDS: traMADol 50 MG TABLET PO PRN ×3 (00:31→22:36)
[2017-03-03] MEDS: Nystatin POWDER 30 GM BOTTLE TP SCH ×3 (00:33→23:51)
[2017-03-03] MEDS: (Diclofenac Sodium [Voltaren] 100 GM) TP SCH ×3 (09:26→23:32)
[2017-03-03] MEDS: Ascorbic Acid 500 MG TABLET PO SCH ×2 (09:58→23:33)
[2017-03-03] MEDS: Multivit/Ca/Min/Fe/FA 1 TAB TABLET PO SCH (10:03)
[2017-03-03] MEDS: Zinc Sulfate 220 MG CAPSULE PO SCH (10:04)
[2017-03-03] MEDS: *HR* Glimepiride 2 MG TABLET PO SCH (10:04)
[2017-03-03] MEDS: *HR* Enoxaparin 30 MG/0.3 ML SYRINGE SQ SCH (10:04)
[2017-03-03] MEDS: Megestrol Acetate 400 MG/10 ML UDC PO SCH (10:05)
[2017-03-03] MEDS: Silvasorb 44.4 ML TUBE TP SCH (10:10)
--- NOTE | 2017-03-03 15:00 | Internal Med Progress Note ---
Date of Encounter: 03/04/17 Time of Encounter: 14:40 - Assessment and plan (1) Pressure injury of skin, stage 2 Current Visit: Yes Status: Acute Assessment and plan: Defer management to Wound Care Team. Qualifiers: Pressure ulcer location: dorsum of foot Laterality: left Qualified Code(s ): L89.892 - Pressure ulcer of other site, stage 2 (2) Sacral decubitus ulcer, stage III Current Visit: No Status: Acute Assessment and plan: Defer management to Wound Care Team. (3) Diabetes Current Visit: No Status: Acute Qualifiers: Diabetes mellitus type: type 2 Diabetes mellitus complication status: with skin complications Diabetes mellitus complication detail: with other skin ulcer Diabetes mellitus halfway insulin use: without halfway use Qualified Code(s): E11.622 - Type 2 diabetes mellitus with other skin ulcer (4) Urinary tract infection Current Visit: No Status: Acute Qualifiers: Urinary tract infection type: acute cystitis Hematuria presence: without hematuria Qualified Code(s): N30.00 - Acute cystitis without hematuria (5) Hypotension Current Visit: No Status: Acute Assessment and plan: Doing well, clinically. Qualifiers: Hypotension type: hypotension due to drug Qualified Code(s): I95.2 - Hypotension due to drugs - Subjective Interval history: Feels somewhat tired and limited by dyspnea which she attributes to her diffuse pain. She's not receiving her Voltaren as it is non-formulary and wants something else for it. She had been moving her bowels, OK. Denies other acute changes or other problems per ROS. - Constitutional Vitals: Temp Pulse Resp BP Pulse Ox 98.5 F 100 18 133/83 94 03/03/17 07:44 03/03/17 07:44 03/03/17 07:44 03/03/17 07:44 03/03/17 07:44 General appearance: Present: A&O X 3 - Head Head exam: Present: atraumatic, normocephalic - Eye Eye exam: Present: PERRL, conjuntiva pink, sclera anicteric Pupils: Present: PERRL - Neck Neck exam general surgery: Present: supple, trachea midline - Respiratory Respiratory exam: Present: CTAB, rales. Absent: accessory muscle use, rhonchi, wheezes Additional comments: Has some bibasilar rarles.These clear partially with coughing. - Cardiovascular Cardiovascular exam: Present: RRR. Absent: diastolic murmur, systolic murmur - GI/Abdominal GI/Abdominal exam: Present: normal bowel sounds, soft, no peritoneal signs. Absent: distended, tenderness - Extremities Exam Extremities exam: Present: pedal edema, warm, radial pulses palpable and symmetrical. Absent: calf tenderness, cyanotic Additional comments: Chornic edema with diffuse aligator skin changes at feet. Wearing compression wrap and wounds are dressed, incluing at left iliac area. - Skin Additional comments: Shee exxtremities, about. Detailed exam deferred to wound care team. Internal Medicine: Result - Labs CBC & Chem 7: 03/02/17 06:23 03/02/17 06:23 Consult Discharge Plan - Plan Referrals: Major Steel MD [Primary Care Provider] -
[2017-03-03] MEDS: Levofloxacin 250 MG/50 ML 250 MG/50 ML BAG IVPB SCH (22:37)
[2017-03-04] MEDS: Megestrol Acetate 400 MG/10 ML UDC PO SCH (08:34)
[2017-03-04] MEDS: Zinc Sulfate 220 MG CAPSULE PO SCH (08:35)
[2017-03-04] MEDS: Ibuprofen 600 MG TABLET PO PRN ×2 (08:35→14:46)
[2017-03-04] MEDS: *HR* Glimepiride 2 MG TABLET PO SCH (08:35)
[2017-03-04] MEDS: Multivit/Ca/Min/Fe/FA 1 TAB TABLET PO SCH (08:35)
[2017-03-04] MEDS: Nystatin POWDER 30 GM BOTTLE TP SCH ×2 (08:36→22:57)
[2017-03-04] MEDS: *HR* Enoxaparin 40 MG/0.4 ML SYRINGE SQ SCH (08:36)
[2017-03-04] MEDS: (Diclofenac Sodium [Voltaren] 100 GM) TP SCH ×3 (08:37→22:43)
[2017-03-04] MEDS: Ascorbic Acid 500 MG TABLET PO SCH ×2 (08:37→22:43)
[2017-03-04] MEDS: Silvasorb 44.4 ML TUBE TP SCH (14:13)
--- NOTE | 2017-03-04 15:28 | Internal Med Progress Note ---
Date of Encounter: 03/04/17 Time of Encounter: 14:45 - Assessment and plan (1) Pressure injury of skin, stage 2 Current Visit: Yes Status: Acute Assessment and plan: Defer management to Wound Care Team. Qualifiers: Pressure ulcer location: dorsum of foot Laterality: left Qualified Code(s ): L89.892 - Pressure ulcer of other site, stage 2 (2) Sacral decubitus ulcer, stage III Current Visit: Yes Status: Acute Assessment and plan: Defer management to Wound Care Team. (3) Diabetes Current Visit: Yes Status: Acute Qualifiers: Diabetes mellitus type: type 2 Diabetes mellitus complication status: with skin complications Diabetes mellitus complication detail: with other skin ulcer Diabetes mellitus terminal manager insulin use: without terminal manager use Qualified Code(s): E11.622 - Type 2 diabetes mellitus with other skin ulcer (4) Urinary tract infection Current Visit: No Status: Acute Assessment and plan: linically resolving. Qualifiers: Urinary tract infection type: acute cystitis Hematuria presence: without hematuria Qualified Code(s): N30.00 - Acute cystitis without hematuria (5) Hypotension Current Visit: No Status: Acute Qualifiers: Hypotension type: hypotension due to drug Qualified Code(s): I95.2 - Hypotension due to drugs - Subjective Interval history: Feeling better. Shoulder and other pain is much better. Denies dyspnea or other issues. Moving bowels, well. ROS is negatie. - Constitutional Vitals: Temp Pulse Resp BP Pulse Ox 98.9 F 92 18 116/53 92 03/04/17 08:01 03/04/17 08:01 03/04/17 08:01 03/04/17 08:01 03/04/17 08:01 General appearance: Present: A&O X 3 - Head Head exam: Present: atraumatic, normocephalic - Eye Eye exam: Present: PERRL, conjuntiva pink, sclera anicteric Pupils: Present: PERRL - Neck Neck exam general surgery: Present: supple, trachea midline - Respiratory Respiratory exam: Present: CTAB. Absent: accessory muscle use, rales, rhonchi, wheezes - Cardiovascular Cardiovascular exam: Present: RRR. Absent: diastolic murmur, systolic murmur - GI/Abdominal GI/Abdominal exam: Present: normal bowel sounds, soft, no peritoneal signs. Absent: distended, tenderness Additional comments: Obese and therefore difficult to palopate deeply. - Extremities Exam Extremities exam: Present: warm, radial pulses palpable and symmetrical. Absent : calf tenderness, cyanotic, pedal edema Internal Medicine: Result - Labs CBC & Chem 7: 03/02/17 06:23 03/02/17 06:23 Consult Discharge Plan - Plan Referrals: Major Steel MD [Primary Care Provider] -
[2017-03-04] MEDS: Levofloxacin 250 MG/50 ML 250 MG/50 ML BAG IVPB SCH (22:42)
[2017-03-05 06:37] LABS: Basophils % 0.2 %; Eosinophils # 0.5 K/mcL (0.0-0.6); Eosinophils % 3.6 %; Hematocrit 32.5 % (35.3-44.9); Hemoglobin 10.8 g/dL (11.5-15.4); Immature Granulocytes % 0.5 % (0-4); Lymphocytes # 1.7 K/mcL (0.6-4.6); Lymphocytes % 12.5 %; Mean Corpuscular HGB Conc 33.2 g/dL (31.6-35.5); Mean Corpuscular Hemoglobin 28.4 pg (28.0-33.3); Mean Corpuscular Volume 85.5 fL (83.0-100.0); Mean Platelet Volume 10.1 fL (9.4-12.4); Monocytes # 1.3 K/mcL (0.0-1.3); Monocytes % 9.3 %; Platelet Count 392 K/mcL (140-400); Red Cell Distribution Width 15.3 % (11.5-14.5); Segmented Neutrophils % 73.9 %
[2017-03-05 06:38] LABS: Neutrophils # 10.1 K/mcL (1.6-8.9)
[2017-03-05 06:45] LABS: BUN/Creatinine Ratio 21 (6-26); Blood Urea Nitrogen 15 mg/dL (7-20); Calcium 8.2 mg/dL (8.6-10.8); Carbon Dioxide 20 mEq/L (19-29); Chloride 110 mEq/L (98-109); Glucose 53 mg/dL (70-99); Osmolality,Calculated 288 (280-300); Potassium 3.4 mEq/L (3.5-4.5); Sodium 140 mEq/L (136-145); eGFR For African Americans > 60 (> 60); eGFR For Non-African Americans > 60 (> 60)
[2017-03-05 07:08] VITALS: BP 121/57
[2017-03-05] MEDS: Megestrol Acetate 400 MG/10 ML UDC PO SCH (08:53)
[2017-03-05] MEDS: Ibuprofen 600 MG TABLET PO PRN (08:54)
[2017-03-05] MEDS: Zinc Sulfate 220 MG CAPSULE PO SCH (08:54)
[2017-03-05] MEDS: *HR* Enoxaparin 40 MG/0.4 ML SYRINGE SQ SCH (08:55)
[2017-03-05] MEDS: *HR* Glimepiride 2 MG TABLET PO SCH (08:56)
[2017-03-05] MEDS: Nystatin POWDER 30 GM BOTTLE TP SCH (08:56)
[2017-03-05] MEDS: Ascorbic Acid 500 MG TABLET PO SCH (08:57)
[2017-03-05] MEDS: (Diclofenac Sodium [Voltaren] 100 GM) TP SCH (08:57)
[2017-03-05] MEDS: Multivit/Ca/Min/Fe/FA 1 TAB TABLET PO SCH (09:01)
--- NOTE | 2017-03-05 10:58 | Internal Med History&Physical ---
Date of Encounter: 02/27/17 Time of Encounter: 11:00 Assessment and Plan (1) Pressure injury of skin, stage 2 Current visit: Yes Status: Acute Qualifiers: Pressure ulcer location: dorsum of foot Laterality: left Qualified Code(s ): L89.892 - Pressure ulcer of other site, stage 2 (2) Venous stasis dermatitis Current visit: Yes Status: Chronic Qualifiers: Laterality: bilateral Qualified Code(s): I87.2 - Venous insufficiency ( chronic) (peripheral) (3) Venous stasis of lower extremity Current visit: No Status: Acute (4) Sacral decubitus ulcer, stage III Current visit: Yes Status: Acute (5) Urinary tract infection Current visit: No Status: Acute Qualifiers: Urinary tract infection type: acute cystitis Hematuria presence: without hematuria Qualified Code(s): N30.00 - Acute cystitis without hematuria Internal Medicine - H&P: HPI Chief complaint: This patient was admitted from acute care to [facility] due to the fact that she Admitted From: Intrahospital Transfer Plans for Post Hospital Care: Home (Patient does insist on being discharged home. This is against our advice but they have 2 new caregivers to help her daughter.) History of present illness: Ms. Trevino is a 86 year old female Patient has long-term venous stasis with chronic significant swelling cellulitis breakdown and his improve drastically with the correct treatment diuresis elevation etc. She is put in swimming currently so that we can continue treatment Past Med Surg Social Fam HX - Past Medical History Medical history: arthritis, diabetes, GERD, hyperlipidemia, hypertension, venous stasis Psychiatric history: no psych history - Past Surgical History Surgical History: cholecystectomy, other - Social History Smoking Status: Never smoker Smokeless Tobacco Status: No Alcohol use: none Drug use: none - Family History Mother Adopted: No Living Status: Hx Family Cancer: Yes (cancer all over) Internal Medicine - H&P: Meds Atorvastatin [Lipitor] 40 mg PO HS 01/07/15 [History] Diclofenac Sodium [Voltaren] 100 gm TP TID 01/07/15 [History] Furosemide [Lasix] 80 mg PO BID 01/07/15 [History] Glimepiride [Amaryl] 2 mg PO DAILY 01/07/15 [History] Omeprazole [Prilosec] 40 mg PO DAILY 01/07/15 [History] Valsartan [Diovan] 160 mg PO DAILY 01/07/15 [History] Clindamycin HCl [Cleocin HCl] 300 mg PO TID 7 Days #21 cap 01/25/17 [Rx] Tramadol HCl [Ultram] 50 mg PO BID PRN 10 Days #20 tablet 01/25/17 [Rx] 3 Allergy/AdvReac Type Severity Reaction Status Date / Time cephalexin [From Keflex] Allergy Itching Verified 02/20/17 21:58 sulfamethoxazole Allergy Itching Verified 02/20/17 21:58 [From Bactrim] All Systems PM: A 10-system review of systems was performed and is negative for pertinent findings except as documented above in the HPI. - Constitutional Vitals: Temp Pulse Resp BP Pulse Ox 98.1 F 67 18 121/57 92 03/05/17 07:07 03/05/17 07:07 03/05/17 07:07 03/05/17 07:07 03/05/17 07:07 General appearance: Present: A&O X 3 Internal Med - H&P Results - Labs CBC & Chem 7: 03/05/17 06:10 03/05/17 06:10 Labs: Short CBC 03/05/17 Range/Units 06:10 WBC 13.6 H (4.3-11.1) K/mcL Hgb 10.8 L (11.5-15.4) g/dL Hct 32.5 L (35.3-44.9) % Plt Count 392 (140-400) K/mcL Neutrophils # 10.1 H (1.6-8.9) K/mcL BMP 03/05/17 06:10 Sodium 140 Potassium 3.4 L Chloride 110 H Carbon Dioxide 20 BUN 15 Creatinine 0.73 Glucose 53 L Calcium 8.2 L
[2017-03-05] MEDS: Silvasorb 44.4 ML TUBE TP SCH (11:13)
--- NOTE | 2017-03-05 13:43 | Internal Med Progress Note ---
Date of Encounter: 03/05/17 Time of Encounter: 13:40 - Assessment and plan (1) Pressure injury of skin, stage 2 Current Visit: Yes Status: Acute Assessment and plan: Overall cellulitis is significantly improved and very minimal at most Qualifiers: Pressure ulcer location: dorsum of foot Laterality: left Qualified Code(s ): L89.892 - Pressure ulcer of other site, stage 2 (2) Venous stasis dermatitis Current Visit: Yes Status: Chronic Assessment and plan: This is chronic by nature Qualifiers: Laterality: bilateral Qualified Code(s): I87.2 - Venous insufficiency ( chronic) (peripheral) (3) Venous stasis of lower extremity Current Visit: No Status: Acute (4) Sacral decubitus ulcer, stage III Current Visit: Yes Status: Acute Assessment and plan: Improving OB check before discharge again (5) Urinary tract infection Current Visit: No Status: Acute Assessment and plan: Should be pretty well resolved Qualifiers: Urinary tract infection type: acute cystitis Hematuria presence: without hematuria Qualified Code(s): N30.00 - Acute cystitis without hematuria - Time Spent With Patient less than 15 minutes - Constitutional Vitals: Temp Pulse Resp BP Pulse Ox 98.1 F 67 18 121/57 92 03/05/17 07:07 03/05/17 07:07 03/05/17 07:07 03/05/17 07:07 03/05/17 07:07 General appearance: Present: A&O X 3 - Head Head exam: Present: atraumatic, normal inspection, normocephalic - Neck Neck exam general surgery: Present: supple, trachea midline. Absent: lymphadenopathy - Respiratory Respiratory exam: Present: CTAB. Absent: accessory muscle use, rales, rhonchi, wheezes - Cardiovascular Cardiovascular exam: Present: RRR, +S1, +S2. Absent: diastolic murmur, gallop, rubs, systolic murmur - GI/Abdominal GI/Abdominal exam: Present: normal bowel sounds, soft, no peritoneal signs. Absent: distended, tenderness Internal Medicine: Result - Labs CBC & Chem 7: 03/05/17 06:10 03/05/17 06:10 Labs: Short CBC 03/05/17 Range/Units 06:10 WBC 13.6 H (4.3-11.1) K/mcL Hgb 10.8 L (11.5-15.4) g/dL Hct 32.5 L (35.3-44.9) % Plt Count 392 (140-400) K/mcL Neutrophils # 10.1 H (1.6-8.9) K/mcL BMP 03/05/17 06:10 Sodium 140 Potassium 3.4 L Chloride 110 H Carbon Dioxide 20 BUN 15 Creatinine 0.73 Glucose 53 L Calcium 8.2 L Potassium slowly off to recheck F4 she is discharged Consult Discharge Plan - Plan Referrals: Major Steel MD [Primary Care Provider] -
--- NOTE | 2017-03-05 15:33 | Internal Med Progress Note ---
Date of Encounter: 03/05/17 Time of Encounter: 15:31 - Assessment and plan (1) Pressure injury of skin, stage 2 Current Visit: Yes Status: Acute Assessment and plan: Patient will continue to have treatment wound care through home health Qualifiers: Pressure ulcer location: dorsum of foot Laterality: left Qualified Code(s ): L89.892 - Pressure ulcer of other site, stage 2 (2) Venous stasis dermatitis Current Visit: Yes Status: Chronic Qualifiers: Laterality: bilateral Qualified Code(s): I87.2 - Venous insufficiency ( chronic) (peripheral) (3) Venous stasis of lower extremity Current Visit: No Status: Acute Assessment and plan: Since his chronic and her legs have been elevated in the local right (4) Sacral decubitus ulcer, stage III Current Visit: Yes Status: Acute Assessment and plan: Sacral decubitus is significantly healed (5) Urinary tract infection Current Visit: No Status: Acute Assessment and plan: Been treated with antibiotics and should be stable Qualifiers: Urinary tract infection type: acute cystitis Hematuria presence: without hematuria Qualified Code(s): N30.00 - Acute cystitis without hematuria - Time Spent With Patient less than 15 minutes - Subjective Interval history: Wound care has recommended that no weightbearing on her feet at this time. Patient's family reports several weigher lift at home. They have 2 new caregivers. Legs are much improved to have home health follow-up with PT wound care. - Constitutional Vitals: Temp Pulse Resp BP Pulse Ox 98.1 F 67 18 121/57 92 03/05/17 07:07 03/05/17 07:07 03/05/17 07:07 03/05/17 07:07 03/05/17 07:07 General appearance: Present: A&O X 3 - Head Head exam: Present: atraumatic, normal inspection, normocephalic - Neck Neck exam general surgery: Present: supple, trachea midline. Absent: lymphadenopathy - Respiratory Respiratory exam: Present: CTAB. Absent: accessory muscle use, rales, rhonchi, wheezes - Cardiovascular Cardiovascular exam: Present: RRR, +S1, +S2. Absent: diastolic murmur, gallop, rubs, systolic murmur - Expanded Lower Extremities Exam Hip exam: Present: erythema, swelling Lower Leg exam: Present: erythema, swelling, tenderness Ankle exam: Present: swelling Internal Medicine: Result - Labs CBC & Chem 7: 03/05/17 06:10 03/05/17 06:10 Labs: Short CBC 03/05/17 Range/Units 06:10 WBC 13.6 H (4.3-11.1) K/mcL Hgb 10.8 L (11.5-15.4) g/dL Hct 32.5 L (35.3-44.9) % Plt Count 392 (140-400) K/mcL Neutrophils # 10.1 H (1.6-8.9) K/mcL BMP 03/05/17 06:10 Sodium 140 Potassium 3.4 L Chloride 110 H Carbon Dioxide 20 BUN 15 Creatinine 0.73 Glucose 53 L Calcium 8.2 L Lab showed a slightly low potassium for which we started K BUN/creatinine were pretty good Consult Discharge Plan - Plan Referrals: Major Steel MD [Primary Care Provider] -
--- NOTE | 2017-03-05 15:37 | Physician Discharge Referral ---
Home Health/Hosp Referral Info Transfer to: Home Health Provider in Charge Post Discharge: PCP - Diagnosis (1) Pressure injury of skin, stage 2 Priority: Primary Status: Acute (2) Venous stasis dermatitis Priority: Primary Status: Chronic (3) Venous stasis of lower extremity Priority: Primary Status: Acute (4) Sacral decubitus ulcer, stage III Priority: Primary Status: Acute (5) Urinary tract infection Priority: Secondary Status: Acute - Respiratory Orders Smoking Cessation: Smoking cessation has been advised. For more information, call the [place] Tobacco Quit Line at 8-167-NZJV-NOW. - Diet/Nutrition Diet/Nutrition Orders: Regular - Activity Activity Orders: Chair - Services Needed Following services are medically necessary services: Nursing, Home Health Aide, Physical Therapy, Occupational Therapy Home Care Orders: Wound care - Transfer Medications Home Medications: Atorvastatin [Lipitor] 40 mg PO HS 01/07/15 [History] Diclofenac Sodium [Voltaren] 100 gm TP TID 01/07/15 [History] Furosemide [Lasix] 80 mg PO BID 01/07/15 [History] Glimepiride [Amaryl] 2 mg PO DAILY 01/07/15 [History] Omeprazole [Prilosec] 40 mg PO DAILY 01/07/15 [History] Valsartan [Diovan] 160 mg PO DAILY 01/07/15 [History] Clindamycin HCl [Cleocin HCl] 300 mg PO TID 7 Days #21 cap 01/25/17 [Rx] Tramadol HCl [Ultram] 50 mg PO BID PRN 10 Days #20 tablet 01/25/17 [Rx] Allergies/Adverse Reactions: 3 Allergy/AdvReac Type Severity Reaction Status Date / Time cephalexin [From Keflex] Allergy Itching Verified 02/20/17 21:58 sulfamethoxazole Allergy Itching Verified 02/20/17 21:58 [From Bactrim] Certification: Further, I certify that my clinical findings support that this patient is homebound (i.e. absences from home require considerable and taxing effort and are for medical reasons or [facility] or infrequently or short duration when for other reasons) because: Homebound Reason: Patient requires assistance of a person or device to safely leave home (A she is not ambulatory and family simply could not manage her to come to an outpatient facility) Attestation: My signature below is to certify that this patient is under my care and that I, or nurse practitioner, or a physician's ophthalmic surgical assistant working with me, has a face-to -face encounter with this patient.
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
== END 2017-03-05 16:45 | disposition home health service (06) | DRG 945 ==
LOC: INPGRE 16:59
PROVIDERS: ADMIT Internal Medicine; ATTEND Internal Medicine